=== PATIENT | male | born 1955 | race Caucasian/White ===

== ENCOUNTER 2020-07-10 01:24 | Outpatient (CLI) | payer MEDICARE, SELFPAY ==
[2020-07-10 17:41] LABS: SARS-CoV-2 RNA PCR Negative
== END 2020-07-10 01:25 | disposition home or self-care (01) ==
LOC: ANHCOVIDDT 01:24
PROVIDERS: Visit Provider Internal Medicine Gastroenterology
DX: Z01.812 Encounter for preprocedural laboratory examination (principal); Z20.828 Contact with and (suspected) exposure to other viral communicable diseases
CPT/HCPCS: 87635; C9803; U0003

== ENCOUNTER 2020-07-12 02:51 | Day surgery (SDC) | payer MEDICARE, SELFPAY ==
[2020-07-06 09:06] VITALS: BMI 29.7
[2020-07-12 08:27] VITALS: BP 119/95; PULSE 78; RESP 20; TEMP 36.4; O2SAT 96
[2020-07-12] MEDS: LACTATED RINGERS 1,000 ML 150 ML IV CONT (08:44)
--- NOTE | 2020-07-12 08:47 | PM.HPGS ---
History of Present Illness History of Present Illness Consent: Risks, benefits, and alternatives have been discussed and questions answered. Patient agrees to proceed with procedure. Chief complaint: Hx of Polyps Narrative: Shaun Pope is a 64 year old male with a history of colon polyps. He had 10 polyps removed about to years ago. 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 MARIJUANA Last use: DAILY USE OF MARIJUANA Living arrangements: with family Gender identity (if verbalized by the patient): Male Spiritual care concerns: No Agree to blood products: Yes Meds Home Medications and Allergies Home Medications Medication Instructions Recorded Confirmed Type almotriptan malate 12.5 mg PO PRN PRN 08/11/19 07/06/20 History atorvastatin 40 mg PO DAILY 08/11/19 07/06/20 History propranolol 160 mg PO DAILY 08/11/19 07/06/20 History Allergies Allergy/AdvReac Type Severity Reaction Status Date / Time hydrocodone Allergy Unknown FROM ABUSE Verified 07/12/20 08:26 IN YOUNGER YEARS Vital Signs Vital Signs - 24 hr 07/12/20 08:27 Temperature 36.4 C L Pulse Rate 78 Respiratory Rate 20 Blood Pressure 119/95 H Pulse Oximetry 96 Exam Resp: Auscultation: clear to auscultation bilaterally Cardio: Rate: regular rate Rhythm: regular rhythm GI: GI Palp: Yes Soft to palpation and No Tenderness to palpation present (GI) Assessment and Plan Assessment and plan (1) Personal history of colonic polyps: Code(s): Z86.010 - Personal history of colonic polyps Status: Acute Assessment and Plan: Colonoscopy with possible biopsy or polypectomy or cautery or injection of substances.
--- NOTE | 2020-07-12 08:48 | P.PNAN_ITS ---
Anes - Initial Pre Proc Eval Procedure: Operation Date: 07/12/20 09:00 Proposed Procedures p Screening Colonoscopy - Laron Montes MD Date/Time: 07/12/20 08:48 Surgeon: Laron Montes MD Pre Op Diagnosis: Hx of Polyps Patient Data Age: 64 Gender: M Height: 5 ft 10 in Weight: 87 kg Last Vital Signs Temp 97.5 F L 07/12/20 08:27 Pulse 78 07/12/20 08:27 Resp 20 07/12/20 08:27 BP 119/95 H 07/12/20 08:27 Pulse Ox 96 07/12/20 08:27 Allergies Allergy/AdvReac Type Severity Reaction Status Date / Time hydrocodone Allergy Unknown FROM ABUSE Verified 07/12/20 08:26 IN YOUNGER YEARS Home Medications Medication Instructions Recorded Confirmed Type almotriptan malate 12.5 mg PO PRN PRN 08/11/19 07/06/20 History atorvastatin 40 mg PO DAILY 08/11/19 07/06/20 History propranolol 160 mg PO DAILY 08/11/19 07/06/20 History Patient hx anesthesia problems: none Family hx anesthesia problems: none [facility] Past Medical History Medical History (Updated 07/12/20 @ 08:47 by Laron oMntes MD) High cholesterol Hypertension Surgical History Surgical History History of left above knee amputation Social History Social History Smoking packs per day: 1 Smoking cigarettes per day: 20.0 Years smoked: 15 Smoking pack-years: 15.00 Smoking status: Current every day smoker Tobacco type: cigarettes Alcohol intake: never Substance use: current Substance use type: marijuana, painkillers and prescription drug 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 MARIJUANA Last use: DAILY USE OF MARIJUANA Living arrangements: with family Gender identity (if verbalized by the patient): Male Spiritual care concerns: No Agree to blood products: Yes Anes - Eval Final PreProcedure Day of Procedure 07/12/20 08:48 Patient weight: overweight Heart: regular rate and rhythm Lungs: clear to auscultation Airway: Mallampati scale class II Neurological: alert and oriented Last oral intake: >/= 8 hours ASA classification: III Emergent: no Anesthetic plan: proceed Anesthesia type and monitoring: general GIVS and standard monitoring Informed Consent: The patient's anesthetic plan and its attendant risks and benefits were discussed with the patient/family/POA. Questions were solicited and answers provided to the satisfaction of the patient/family/POA.
[2020-07-12 09:36] VITALS: BP 137/82; PULSE 77; RESP 20; O2SAT 97
[2020-07-12 09:46] VITALS: BP 138/101; PULSE 78; RESP 18; O2SAT 97
[2020-07-12 09:56] VITALS: BP 137/78; PULSE 72; RESP 18; O2SAT 97
== END 2020-07-12 10:20 | disposition home or self-care (01) ==
PROVIDERS: Visit Provider Internal Medicine Gastroenterology
PROC: 0DJD8ZZ Inspection of Lower Intestinal Tract, Via Natural or Artificial Opening Endoscopic (ICD-10-PCS; CPT 45378; principal; 2020-07-12 09:00)
DX: Z12.11 Encounter for screening for malignant neoplasm of colon (principal); D12.2 Benign neoplasm of ascending colon; D12.4 Benign neoplasm of descending colon; K64.8 Other hemorrhoids; I10 Essential (primary) hypertension; E78.00 Pure hypercholesterolemia, unspecified; F17.210 Nicotine dependence, cigarettes, uncomplicated; F12.90 Cannabis use, unspecified, uncomplicated
CPT/HCPCS: 45385; 88305; J2704; J7120

== ENCOUNTER 2021-08-04 07:53 | Emergency (ER) | payer MEDICARE, SELFPAY ==
[2021-08-04] VITALS (22 sets, daily range): BP systolic 149–180; BP diastolic 98–109; PULSE 52–69; RESP 11–18; TEMP 35.5; O2SAT 97–100
--- NOTE | ~2021-08-04 | CT_ITS ---
EXAMINATION: CTA brain carotid DATE: 08/04/2021 08:52 INDICATION: Vertigo. TECHNIQUE: Computed tomographic angiography (CTA) of the head was performed without and with 100 mL O mnipaque-350 intravenous contrast. CTA of the neck was performed with intravenous contrast. Automated exposure control and iterative reconstruction technique were employed. The dose-length product was 1 743.60 mGy-cm. Maximum intensity projection and volume rendered 3D-reconstructions were created by víctor burden technologist on a separate workstation. COMPARISON: None. FINDINGS: HEAD CTA: There is no intracranial hemorrhage, acute infarction, or abnormal intracranial mass lesion . The ventricles are normal in size. The orbits are normal. There is complete opacification of right maxillary sinus with thickening and sclerosis of the sinus cardoza, consistent with chronic sinusitis. There is mild mucosal thickening in the paranasal sinuses. There is a small right mastoid effusion. T he orbits are normal. Left vertebral artery is dominant. There is no significant stenosis of basilar artery or the posterior cerebral arteries. The posterior communicating arteries are normal. There is an infundibulum at origin of right posterior cerebral communicating artery. There is no significant s tenosis of the intracranial internal carotid arteries or anterior or middle cerebral arteries. Anteri or communicating artery is normal. There is no aneurysm. NECK CTA: There is mild emphysema. There are no pathologically enlarged lymph nodes. There is no sign ificant stenosis of the vertebral arteries. There is mile plaque in the proximal internal carotid art eries. There is 0% stenosis of the proximal right internal carotid artery relative to normal distal a rtery lumen diameter (NASCET criteria). There is 0% stenosis of the proximal left internal carotid ar natalie relative to normal distal artery lumen diameter. There is an aberrant right subclavian artery. T here is mild stenosis of prevertebral right subclavian artery. There is severe cervical spondylosis. IMPRESSION: 1. Normal brain. No aneurysm or significant intracranial internal stenosis. 2. 0% stenosis of the proximal internal carotid arteries relative to normal distal artery lumen diame ters (NASCET criteria). Reviewed, dictated and finalized at location A. CONTROLLER IMPRESSION: 1. Normal brain. No aneurysm or significant intracranial internal stenosis. 2. 0% stenosis of the proximal internal carotid arteries relative to normal dis jeferson artery lumen diameters (NASCET criteria).
--- NOTE | 2021-08-04 07:59 | ECG_ITS ---
Measurements Intervals [place] Rate: 54 P: 47 WV: 150 QRS: -34 QRSD: 93 T: 29 QT: 427 QTc: 408 Interpretive Statements SINUS BRADYCARDIA LEFT AXIS DEVIATION BASELINE ARTIFACT- I, II, AVR, AVL, AVF, V2-V3 BORDERLINE ECG Electronically Signed On 08-05-2021 14:38:55 WINDER CONTORT OPERATOR by Vicente Frost D.O.
[2021-08-04 08:37] LABS: Basophils Absolute Auto 0.1 K/mm3 (0.0-0.1); Basophils Percent Auto 1.3 % (0.2-1.2); Eosinophils Absolute Auto 0.5 K/mm3 (0-0.3); Eosinophils Percent Auto 6.3 % (0-4.4); Hematocrit 43.4 % (42.0-52.0); Hemoglobin 15.4 g/dL (14.0-18.0); Immature Granulocyte Absolute 0.02 K/mm3 (0.00-0.031); Immature Granulocyte Percent A 0.3 % (0-0.5); Lymphocytes Absolute Auto 1.97 K/mm3 (0.9-3.2); Lymphocytes Percent Auto 24.8 % (18.3-44.2); Mean Corpuscular HGB Conc 35.5 g/dl (32-36); Mean Corpuscular Hemoglobin 32.9 pg (26-34); Mean Corpuscular Volume 92.7 fl (80-100); Mean Platelet Volume 10.2 fl (7.4-10.4); Monocytes Absolute Auto 0.6 K/mm3 (0.1-0.6); Monocytes Percent Auto 7.9 % (2.6-8.5); Neutrophils Absolute Auto 4.7 K/mm3 (1.3-6.7); Neutrophils Percent Auto 59.4 % (45.5-73.1); Platelet Count Result 266 k/mm3 (150-375); Red Blood Count 4.68 M/mm3 (4.6-6.20); Red Cell Distribution Width 12.5 % (11.5-14.5)
[2021-08-04 08:38] LABS: Anion Gap 11 mmol/L (8-16); Blood Urea Nitrogen 21 mg/dL (9-20); Calcium 9.7 mg/dL (8.4-10.2); Carbon Dioxide 20 mmol/L (22-30); Chloride 107 mmol/L (98-107); Estimated CRCL calculation 72 ml/min; Estimated Glomerular Filt Rate > 60; Glucose 195 mg/dL (65-110); Potassium 3.8 mmol/L (3.4-5.0); Sodium 138 mmol/L (137-145)
--- NOTE | 2021-08-04 08:50 | PC.NURSE ---
Pt gone to CT scan
--- NOTE | 2021-08-04 08:54 | PC.NURSE ---
Pt states his normally low between 50-60
[2021-08-04] MEDS: SODIUM CHLORIDE 0.9% IV 1,000 ML 999 ML IV CONT (08:57)
[2021-08-04] MEDS: MECLIZINE HCL 25 MG TABLET PO (08:57)
--- NOTE | 2021-08-04 09:08 | PC.NURSE ---
Informed pt of the importance of urine collection, he is attempting to use urinal
[2021-08-04 09:48] LABS: Add Urine Microscopic? YES; Appearance Urine Clear (Clear); Bilirubin Urine Negative (Negative); Blood Urine Negative (Negative); Color Urine Straw (Yellow); Glucose Urine UA Negative (Negative); Ketones Urine Trace mg/dL (Negative); Leukocyte Esterase Ur Negative LEU/UL (Negative); Mucus Urine Rare /lpf; Nitrate Urine Negative (Negative); Protein Urine Negative (Negative); RBC Urine 0-2 /hpf (0-2); Urobilinogen Urine Negative mg/dL (<2.0); WBC Urine 0-3 /hpf
[2021-08-04 09:51] LABS: Specific Grav Ur 1.036 (1.001-1.035)
--- NOTE | 2021-08-04 10:00 | PC.NURSE ---
aware of BP, pt states he will follow up with his doctor, and take his meds
[2021-08-04 10:07] LABS: Alanine Aminotransferase 31 U/L (4-50); Albumin Level 4.3 g/dL (3.5-5.1); Alkaline Phosphatase 100 U/L (38-126); Aspartate Amino Transferase 34 U/L (17-59); Bilirubin,Total 0.5 mg/dL (0.2-1.3)
--- NOTE | 2021-08-04 10:11 | ED.DIZZY ---
HPI - Dizziness General Chief Complaint: Dizziness Stated Complaint: dizziness, n/v Time Seen by Provider: 08/04/21 08:20 Source: patient History of Present Illness HPI Narrative: Patient presents with dizziness. Patient reports he was at the gas station getting up coughing and went to the dial register and he had sudden onset of dizziness described as the room was spinning and he was feeling off balance. Is never had symptoms like this before reports he was sweaty but reports he normally sweats a lot. He reported associated nausea denies any chest pain shortness of breath sensation of going to pass out focal numbness or weakness. rePorts he felt better when he closed his eyes reports his symptoms had greatly improved on arrival to the ER. Prior history of migraines and feels a headache coming on since arrival to the ER similar to his prior migraines Related Data Home Medications Medication Instructions Recorded Confirmed almotriptan malate 12.5 mg PO PRN PRN 08/11/19 07/06/20 atorvastatin 40 mg PO DAILY 08/11/19 07/06/20 propranolol 160 mg PO DAILY 08/11/19 07/06/20 Allergies Allergy/AdvReac Type Severity Reaction Status Date / Time hydrocodone Allergy Unknown FROM ABUSE Verified 07/12/20 08:26 IN YOUNGER YEARS Review of Systems Review of Systems: CONSTITUTIONAL: Denies fever, chills, or sweats. EYES: Denies visual changes, redness, or discharge. ENT: Denies rhinorrhea, congestion, sore throat, or otalgia. CARDIOVASCULAR: Denies chest pain, palpitations, or edema. RESPIRATORY: Denies cough or dyspnea. GASTROINTESTINAL: Denies abdominal pain, nausea, vomiting, or diarrhea. GENITOURINARY: Denies dysuria or hematuria. SKIN: Denies rash or itching. MUSCULOSKELETAL: Denies back pain, joint pain, or myalgia. NEUROLOGIC: Denies numbness, or weakness. PSYCHIATRIC: Denies anxiety or depression. 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 HEAD: Normocephalic, atraumatic. EYES: PERRLA and EOMI. ENT: Nares clear, no rhinorrhea or epistaxis. Mucous membranes moist. NECK: Supple. No masses. No JVD CHEST: Clear to auscultation. No respiratory distress. No wheezes rales or rhonchi HEART: Regular rate and rhythm. No murmur heard. Normal peripheral pulses. ABDOMEN: Soft, nontender, nondistended, normal active bowel sounds. EXTREMITIES: Normal range of motion. No edema. SKIN: Warm, dry, no rash. NEURO: Cranial nerves II through XII are intact patient has 5 out of 5 strength in all extremities sensation intact to light touch. Patient has no dysmetria there is no dysdiadochokinesia patient ambulates without difficulty alert and oriented x3. PSYCH: Normal mood and affect. Course Reevaluation(s) Reevaluation #1: Patient reports feeling much improved Date: 08/04/21 Time: 10:11 Vital Signs Vital signs: Vital Signs Pulse Rate 63 08/04/21 07:52 Respiratory Rate 11 L 08/04/21 07:52 Blood Pressure 167/99 H 08/04/21 07:52 Pulse Oximetry 97
[2021-08-04] MEDS: KETOROLAC 15 MG/ML VIAL (*BKC) IV PUSH (10:19)
[2021-08-04 10:20] LABS: Troponin I < 0.012 ng/mL (0.000-0.034)
--- NOTE | 2021-08-04 10:29 | PC.NURSE ---
Pt ambulated around the nursing station well,no complaints at this time, pt states he feels fine
== END 2021-08-04 11:02 | disposition home or self-care (01) ==
PROVIDERS: Emergency Provider Emergency Medicine
DX: H81.10 Benign paroxysmal vertigo, unspecified ear (principal); E78.00 Pure hypercholesterolemia, unspecified; I10 Essential (primary) hypertension; F17.210 Nicotine dependence, cigarettes, uncomplicated; Z89.612 Acquired absence of left leg above knee; Z86.69 Personal history of other diseases of the nervous system and sense organs
CPT/HCPCS: 36415; 70496; 70498; 80048; 80076; 81001; 84484; 85025; 93005; 96361; 96374; 96375; 99284; A9270; J0131; J1885; J7030; Q9967

== ENCOUNTER 2021-08-07 09:38 | Emergency (ER) | payer MEDICARE, SELFPAY ==
[2021-08-07 09:38] VITALS: BP 135/102; PULSE 69; RESP 12; TEMP 36.7; O2SAT 99
--- NOTE | 2021-08-07 09:46 | ECG_ITS ---
Measurements Intervals [place] Rate: 69 P: 48 ID: 150 QRS: -33 QRSD: 86 T: 37 QT: 373 QTc: 400 Interpretive Statements SINUS RHYTHM LEFT AXIS DEVIATION DELAYED PRECORDIAL R/S TRANSITION CONSIDER INFERIOR INFARCT, AGE INDETERMINATE ABNORMAL ECG Electronically Signed On 08-07-2021 11:23:57 ELECTRIC MOTOR ANALYST by Vicente Frost D.O.
[2021-08-07 09:58] LABS: Basophils Absolute Auto 0.1 K/mm3 (0.0-0.1); Basophils Percent Auto 0.6 % (0.2-1.2); Eosinophils Absolute Auto 1.4 K/mm3 (0-0.3); Eosinophils Percent Auto 12.7 % (0-4.4); Hematocrit 46.7 % (42.0-52.0); Hemoglobin 16.4 g/dL (14.0-18.0); Immature Granulocyte Absolute 0.04 K/mm3 (0.00-0.031); Immature Granulocyte Percent A 0.4 % (0-0.5); Lymphocytes Absolute Auto 1.09 K/mm3 (0.9-3.2); Lymphocytes Percent Auto 10.2 % (18.3-44.2); Mean Corpuscular HGB Conc 35.1 g/dl (32-36); Mean Corpuscular Hemoglobin 32.2 pg (26-34); Mean Corpuscular Volume 91.7 fl (80-100); Mean Platelet Volume 10.4 fl (7.4-10.4); Monocytes Absolute Auto 0.5 K/mm3 (0.1-0.6); Monocytes Percent Auto 4.6 % (2.6-8.5); Neutrophils Absolute Auto 7.7 K/mm3 (1.3-6.7); Neutrophils Percent Auto 71.5 % (45.5-73.1); Platelet Count Result 280 k/mm3 (150-375); Red Blood Count 5.09 M/mm3 (4.6-6.20); Red Cell Distribution Width 12.7 % (11.5-14.5); White Blood Count 10.7 K/mm3 (4.5-10.0)
[2021-08-07 10:16] LABS: Anion Gap 14 mmol/L (8-16); Blood Urea Nitrogen 25 mg/dL (9-20); Calcium 10.4 mg/dL (8.4-10.2); Carbon Dioxide 20 mmol/L (22-30); Chloride 106 mmol/L (98-107); Estimated CRCL calculation 65 ml/min; Estimated Glomerular Filt Rate > 60; Glucose 154 mg/dL (65-110); Potassium 3.9 mmol/L (3.4-5.0); Sodium 140 mmol/L (137-145)
[2021-08-07] MEDS: LACTATED RINGERS 1,000 ML 999 ML IV CONT (12:15)
[2021-08-07] MEDS: MECLIZINE HCL 25 MG TABLET PO (12:16)
[2021-08-07] MEDS: PROCHLORPERAZINE EDISYLATE 10 MG/2 ML VIAL IV PUSH (12:16)
--- NOTE | 2021-08-07 12:17 | ED.DIZZY ---
HPI - Dizziness General Chief Complaint: Dizziness Stated Complaint: dizzy, blurred vision Time Seen by Provider: 08/07/21 11:17 Source: patient Mode of arrival: ambulatory Limitations: no limitations History of Present Illness HPI Narrative: 65-year-old male Here with recurrent dizziness/vertigo Patient reports a feeling of fullness on the right side of his head and currently a migraine type headache, along with severe spinning dizziness associated with nausea and vomiting and imbalance which is triggered by changes in position or by head movement and somewhat relieved by remaining still Patient had onset of the symptoms 3 days ago He was seen here in the ED at that time, and had an unremarkable work-up to include a negative CTA of the head After his initial evaluation the patient reported that he had a couple of symptom-free days but symptoms returned last night and persisted this morning He tried to take meclizine but he threw it up He does not have any visual symptoms, denies any auditory symptoms such as hearing loss or tinnitus Related Data Home Medications Medication Instructions Recorded Confirmed almotriptan malate 12.5 mg PO PRN PRN 08/11/19 07/06/20 atorvastatin 40 mg PO DAILY 08/11/19 07/06/20 propranolol 160 mg PO DAILY 08/11/19 07/06/20 Allergies Allergy/AdvReac Type Severity Reaction Status Date / Time hydrocodone Allergy Unknown FROM ABUSE Verified 07/12/20 08:26 IN YOUNGER YEARS Review of Systems Review of Systems: All systems reviewed & are unremarkable except as noted in HPI and below Constitutional: Constitutional: Reports no additional constitutional complaints, Denies chills, Denies fever(s) and Denies headache(s) Eyes: Eyes: Reports no additional eye complaints, Denies change in vision and Reports photophobia ENT: Reports vertigo, Reports dizziness, Denies headache(s) and Denies sore throat Cardiovascular: Cardiovascular: Denies chest pain and Denies dyspnea Respiratory: Respiratory: Denies cough and Denies dyspnea Gastrointestinal: Gastrointestinal: Denies abdominal pain, Denies diarrhea, Reports nausea and Reports vomiting Genitourinary: Genitourinary: Denies dysuria and Denies urinary frequency Musculoskeletal: Musculoskeletal: Denies deformity, Denies arthralgias, Denies joint swelling and Denies numbness Integumentary/Breasts: Skin/Breast: Denies rash and Denies wounds Neurologic: Reports vertigo, Reports dizziness, Reports headache(s), Denies focal weakness and Denies numbness Psychiatric: Psychiatric: Reports no additional psychiatric complaints Endocrine: Endocrine: Reports no additional endocrine complaints Hematologic/Lymphatic: Hematologic/Lymphatic: Reports no additional hematologic/lymphatic complaints Allergic/Immunologic: Allergic/Immunologic: Reports no additional allergic/immunologic complaints PMFSH Past Medical History Medical History High cholesterol Hypertension Surgical History Surgical History History of left above knee amputation Social History Social History Smoking packs per day: 1 Smoking cigarettes per day: 20.0 Years smoked: 15 Smoking pack-years: 15.00 Smoking status: Current every day smoker Tobacco type: cigarettes Alcohol intake: never Substance use: current Substance use type: marijuana, painkillers and prescription drug 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
[2021-08-07 12:22] VITALS: BP 139/97; PULSE 71; RESP 16; O2SAT 100
[2021-08-07 13:35] VITALS: BP 149/92; PULSE 68
[2021-08-07 13:36] VITALS: BP 148/108; PULSE 72
[2021-08-07 13:37] VITALS: BP 155/102; PULSE 80
[2021-08-07 14:09] VITALS: BP 140/90; PULSE 75; RESP 16; O2SAT 100
== END 2021-08-07 14:10 | disposition home or self-care (01) ==
PROVIDERS: Emergency Medicine; Emergency Provider Emergency Medicine
DX: H81.399 Other peripheral vertigo, unspecified ear (principal); E78.00 Pure hypercholesterolemia, unspecified; I10 Essential (primary) hypertension; Z89.612 Acquired absence of left leg above knee; F17.210 Nicotine dependence, cigarettes, uncomplicated; R94.31 Abnormal electrocardiogram [ECG] [EKG]
CPT/HCPCS: 36415; 80048; 85025; 93005; 96361; 96374; 99284; A9270; J0780; J7120

== ENCOUNTER 2023-12-29 01:35 | Day surgery (SDC) | payer MEDICARE, SELFPAY ==
[2023-12-15 15:15] VITALS: BMI 28.4
--- NOTE | 2023-12-26 09:38 | SUR.PREOP ---
Patient called regarding upcoming procedure- no answer.
[2023-12-29 07:53] VITALS: BP 144/82; PULSE 81; RESP 18; TEMP 36.1; O2SAT 100
[2023-12-29] MEDS: LACTATED RINGERS 1,000 ML 150 ML IV CONT (08:13)
--- NOTE | 2023-12-29 08:14 | P.PNAN_ITS ---
Anes - Initial Pre Proc Eval Procedure: Operation Date: 12/29/23 09:00 Proposed Procedures p Colonoscopy - Lincoln Woods MD s [facility] Hemorrhoid Treatment - Lincoln Woods MD Date/Time: 12/29/23 08:14 Surgeon: Lincoln Woods MD Pre Op Diagnosis: History colon polyps, melena, other hemorrhoids Patient Data Age: 68 Gender: M Height: 1.78 m Weight: 90 kg Last Vital Signs Temp 97 F L 12/29/23 07:53 Pulse 81 12/29/23 07:53 Resp 18 12/29/23 07:53 BP 144/82 H 12/29/23 07:53 Pulse Ox 100 12/29/23 07:53 O2 Del Method Room Air 12/29/23 07:53 Allergies Allergy/AdvReac Type Severity Reaction Status Date / Time hydrocodone Allergy Unknown FROM ABUSE Verified 12/29/23 07:51 IN YOUNGER YEARS Home Medications Medication Instructions Recorded Confirmed Type almotriptan malate 12.5 mg tablet 12.5 mg PO PRN PRN Headache 08/11/19 12/15/23 History atorvastatin 40 mg tablet 40 mg PO DAILY 08/11/19 12/15/23 History propranolol 160 mg capsule,24 160 mg PO DAILY 08/11/19 12/15/23 History hr,extended release ibuprofen 800 mg tablet 800 mg PO Q6H PRN Pain 10/29/23 12/15/23 History Patient hx anesthesia problems: none Family hx anesthesia problems: none Results Review: All pre-operative results and documents have been reviewed as part of the pre- operative evaluation. [facility] Past Medical History Medical History (Updated 10/29/23 @ 10:41 by Katerin Bansal APRN) Hematochezia High cholesterol Hx of prostatic malignancy Hyperlipidemia Hypertension Internal hemorrhoid, bleeding Migraines Surgical History Surgical History (Updated 10/29/23 @ 10:41 by Katerin Bansal APRN) History of left above knee amputation Hx of endoscopic retrograde cholangiopancreatography Hx of prostatectomy Social History Social History Smoking packs per day: 2 Smoking cigarettes per day: 40.0 Years smoked: 15 Smoking pack-years: 30.00 Smoking status: Former smoker Tobacco type: cigarettes Alcohol intake: former Alcohol use details: last drinks 1984 Substance use: current Substance use type: marijuana 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 MARIJUANA Last use: DAILY USE OF MARIJUANA Living arrangements: with family Gender identity (if verbalized by the patient): Male Spiritual care concerns: No Agree to blood products: Yes Anes - Eval Final PreProcedure Day of Procedure 12/29/23 08:14 Patient weight: normal Heart: regular rate and rhythm Lungs: clear to auscultation Airway: Mallampati scale class II Neurological: alert and oriented Last oral intake: >/= 8 hours ASA classification: III Emergent: no Anesthetic plan: proceed Anesthesia type and monitoring: general GIVS and standard monitoring Results Review: All pre-operative results and documents have been reviewed as part of the pre- operative evaluation. Informed Consent: The patient's anesthetic plan and its attendant risks and benefits were discussed with the patient/family/POA. Questions were solicited and answers provided to the satisfaction of the patient/family/POA.
--- NOTE | 2023-12-29 08:28 | PM.HPGS ---
History of Present Illness History of Present Illness Consent: Risks, benefits, and alternatives have been discussed and questions answered. Patient agrees to proceed with procedure. Chief complaint: History colon polyps, melena, other hemorrhoids Narrative: Shaun Pope is a 68 year old male with h/o hemorrhoids and intermittent rectal bleeding, last colonoscopy with TA polyps in 2018 Review of Systems Review of Systems: All systems reviewed & are unremarkable except as noted in HPI and below PMFSH Past Medical History Medical History (Updated 10/29/23 @ 10:41 by Katerin Bansal APRN) Hematochezia High cholesterol Hx of prostatic malignancy Hyperlipidemia Hypertension Internal hemorrhoid, bleeding Migraines Surgical History Surgical History (Updated 10/29/23 @ 10:41 by Katerin Bansal APRN) History of left above knee amputation Hx of endoscopic retrograde cholangiopancreatography Hx of prostatectomy Social History Social History Smoking packs per day: 2 Smoking cigarettes per day: 40.0 Years smoked: 15 Smoking pack-years: 30.00 Smoking status: Former smoker Tobacco type: cigarettes Alcohol intake: former Alcohol use details: last 1984 Substance use: current Substance use type: marijuana 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 MARIJUANA Last use: DAILY USE OF MARIJUANA Living arrangements: with family Gender identity (if verbalized by the patient): Male Spiritual care concerns: No Agree to blood products: Yes Meds Home Medications and Allergies Home Medications Medication Instructions Recorded Confirmed Type almotriptan malate 12.5 mg tablet 12.5 mg PO PRN PRN Headache 08/11/19 12/15/23 History atorvastatin 40 mg tablet 40 mg PO DAILY 08/11/19 12/15/23 History propranolol 160 mg capsule,24 160 mg PO DAILY 08/11/19 12/15/23 History hr,extended release ibuprofen 800 mg tablet 800 mg PO Q6H PRN Pain 10/29/23 12/15/23 History Allergies Allergy/AdvReac Type Severity Reaction Status Date / Time hydrocodone Allergy Unknown FROM ABUSE Verified 12/29/23 07:51 IN YOUNGER YEARS Vital Signs Vital Signs - 24 hr 12/29/23 07:53 Temperature 97 F L Pulse Rate 81 Respiratory Rate 18 Blood Pressure 144/82 H Pulse Oximetry 100 Oxygen Delivery Room Air Exam Const: General: comfortable and no acute distress HENMT: Face/Nose/Sinus: Normal nares present Eyes: General: appearance normal, both eyes and all related structures Neck: Neck: no JVD Resp: Auscultation: clear to auscultation bilaterally Cardio: Rate: regular rate Rhythm: regular rhythm GI: Inspection: non-distended GI Palp: Yes Soft to palpation Skin: General skin exam: normal color Neuro: General: gait normal Speech: normal speech Extrem: General: normal to inspection Psych: Mental Status: mental status grossly normal Assessment and Plan Assessment and plan (1) Internal hemorrhoid, bleeding: Code(s): K64.8 - Other hemorrhoids Status: Acute Assessment and Plan: if find internal hemorrhoids then will offer IRC (2) Personal history of colonic polyps: Code(s): Z86.010 - Personal history of colonic polyps Status: Acute Assessment and Plan: colonoscopy
[2023-12-29 08:51] VITALS: BP 110/69; PULSE 85; RESP 21; O2SAT 96
[2023-12-29 09:01] VITALS: BP 119/87; PULSE 86; RESP 20; O2SAT 100
[2023-12-29 09:11] VITALS: BP 132/85; PULSE 90; RESP 18; O2SAT 100
--- NOTE | 2023-12-29 15:31 | SUR.OPER ---
0845: IRC TREATMENT NOT COMPLETED DUE TO IRC MACHINE NOT WORKING PROPERLY, DR UP NOTIFIED PT.
== END 2023-12-29 09:15 | disposition home or self-care (01) ==
PROVIDERS: PCP Family Medicine; Visit Provider Internal Medicine Gastroenterology
PROC: 0DJD8ZZ Inspection of Lower Intestinal Tract, Via Natural or Artificial Opening Endoscopic (ICD-10-PCS; CPT 45378; principal; 2023-12-29 09:00)
DX: K64.2 Third degree hemorrhoids (principal); K57.30 Diverticulosis of large intestine without perforation or abscess without bleeding; D12.4 Benign neoplasm of descending colon; K63.5 Polyp of colon; E78.00 Pure hypercholesterolemia, unspecified; I10 Essential (primary) hypertension; F12.90 Cannabis use, unspecified, uncomplicated; Z79.1 Long term (current) use of non-steroidal anti-inflammatories (NSAID); Z98.890 Other specified postprocedural states; Z89.612 Acquired absence of left leg above knee; Z87.891 Personal history of nicotine dependence; Z86.010 Personal history of colon polyps; Z85.46 Personal history of malignant neoplasm of prostate
CPT/HCPCS: 45380; 45385; 88305; J2704; J7120

== ENCOUNTER 2024-01-22 09:21 | Outpatient (CLI) | payer MEDICARE, SELFPAY ==
--- NOTE | 2024-01-22 11:45 | ECG_ITS ---
SEE SCANNED COPY FOR CONFIRMED REPORT MTDD
== END 2024-01-22 09:22 | disposition home or self-care (01) ==
LOC: ANHSURGERY 09:26
PROVIDERS: PCP Family Medicine; Visit Provider Surgery
DX: Z01.818 Encounter for other preprocedural examination (principal); I10 Essential (primary) hypertension
CPT/HCPCS: 93005

== ENCOUNTER 2024-01-26 00:52 | Day surgery (SDC) | payer MEDICARE, SELFPAY ==
--- NOTE | 2024-01-21 15:21 | PC.NURSE ---
Report to the Outpatient Waiting Room, entrance under the green pavilion located off [facility], at time ___06____ on date ___01/26/24____. Planned Procedure Time: __729 . Time changes happen often and if your time is changed the preop area will call you the afternoon before. - You and your visitor will be asked to self-screen and do not enter if you have any COVID symptoms. - A mask is optional within the hospital at this time. BOWEL PREP PER DR ARAGON CLEAR LIQUID DIET DAY PRIOR TO SURGERY THEN NOTHING TO EAT OR DRINK AFTER MIDNIGHT PER DR ARAGON Take the following medications with a SIP of water the morning of surgery: ___PROPRANOLOL DO NOT STOP ANY OF YOUR OTHER PRESCRIPTION MEDICATIONS PRIOR TO SURGERY ?EXCEPT THE FOLLOWING Medications to discontinue per physician NONE Please no make-up, nail zambian, hairspray, perfume, deodorant, or body powder the day of surgery. No jewelry (including any body piercings) or valuables the day of surgery, leave them at home. Please take a shower or bath the night before, or the morning of, surgery with an antibacterial soap. Wear comfortable, loose fitting clothing. Children are encouraged to wear pajamas. - Jewelry must be removed prior to entering the operating room. Rings and piercings that are not removed may be cut off. - The hospital will not accept responsibility for valuables. - Please leave all valuables, including medications, at home the day of surgery. If you are going home after surgery, a licensed belly dump driver must drive you home. - NO public transportation without another adult if you receive anesthesia. - We recommend that an adult stay with you for 24 hours following discharge. - We also recommend that you do not drive, make important decision, drink alcoholic beverages, or take any drugs that were not prescribed by your health care provider for at least 24 hours after your discharge time. Follow any additional instructions given to you from your surgeon. If you or anyone in your household have experienced Covid symptoms in the past week, please notify your surgeon or the nurse liaison at the phone number below for possible testing. Telephone instructions given to ___PATIENT and asked if any additional questions and then verbalized understanding. Patient advised to call surgeon office or pre surgery nurse liaison [phone] if any additional questions.
[2024-01-21 15:33] VITALS: BMI 25.8
[2024-01-26] VITALS (8 sets, daily range): BP systolic 133–148; BP diastolic 84–103; PULSE 64–82; RESP 12–18; TEMP 36.2–36.4; O2SAT 94–99
[2024-01-26] MEDS: ACETAMINOPHEN 500 MG TABLET 1000 MG PO (06:41)
[2024-01-26] MEDS: KETOROLAC 15 MG/ML VIAL (*BKC) IV PUSH (06:44)
[2024-01-26] MEDS: LACTATED RINGERS 1,000 ML 30 ML IV CONT ×2 (06:50→09:39)
--- NOTE | 2024-01-26 07:20 | WPDANESEPPF ---
Anes - Initial Pre Proc Eval Procedure: Operation Date: 01/26/24 07:30 Proposed Procedures p Trans Hemorrhoidal Dearterialization - Kwaku Castle MD Date/Time: 01/26/24 07:20 Surgeon: Kwaku Castle MD Pre Op Diagnosis: Bleeding Grade III Hemorrhoids Patient Data Age: 68 Gender: M Height: 1.78 m Weight: 77.5 kg Last Vital Signs Temp 36.2 C L 01/26/24 06:50 Pulse 82 01/26/24 06:50 Resp 18 01/26/24 06:50 BP 137/92 H 01/26/24 06:50 Pulse Ox 99 01/26/24 06:50 O2 Del Method Room Air 01/26/24 06:50 Allergies Allergy/AdvReac Type Severity Reaction Status Date / Time hydrocodone AdvReac Unknown FROM ABUSE Verified 01/26/24 06:15 IN YOUNGER YEARS Home Medications Medication Instructions Recorded Confirmed Type almotriptan malate 12.5 mg tablet 12.5 mg PO PRN PRN Headache 08/11/19 01/26/24 History atorvastatin 40 mg tablet 40 mg PO DAILY 08/11/19 01/26/24 History propranolol 160 mg capsule,24 160 mg PO DAILY 08/11/19 01/26/24 History hr,extended release sulfasalazine 500 mg tablet 1,000 mg PO BID 01/21/24 01/26/24 History Patient hx anesthesia problems: none Family hx anesthesia problems: none Results Review: All pre-operative results and documents have been reviewed as part of the pre-operative evaluation. [facility] Past Medical History Medical History Hematochezia Hepatitis C infection High cholesterol History of blood transfusion 1983 Hx of prostatic malignancy Hyperlipidemia Hypertension Internal hemorrhoid, bleeding Migraines Vertigo Surgical History Surgical History History of left above knee amputation Hx of endoscopic retrograde cholangiopancreatography Hx of prostatectomy Social History Social History Smoking packs per day: 2 Smoking cigarettes per day: 40.0 Years smoked: 15 Smoking pack-years: 30.00 Smoking status: Former smoker Tobacco type: cigarettes Smoking end date: 09/22/87 Alcohol intake: former Alcohol use details: last drinks 1984 Substance use: current Substance use type: marijuana 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 MARIJUANA Last use: 01/21/24 Living arrangements: with family Gender identity (if verbalized by the patient): Male Spiritual care concerns: No Agree to blood products: Yes Anes - Eval Final PreProcedure Day of Procedure 01/26/24 07:20 Patient weight: normal Heart: regular rate and rhythm Lungs: decreased breath sounds Airway: Mallampati scale class II Neurological: alert and oriented Last oral intake: >/= 8 hours ASA classification: III Emergent: no Anesthetic plan: proceed Anesthesia type and monitoring: general ETT and standard monitoring Results Review: All pre-operative results and documents have been reviewed as part of the pre-operative evaluation. Informed Consent: The patient's anesthetic plan and its attendant risks and benefits were discussed with the patient/family/POA. Questions were solicited and answers provided to the satisfaction of the patient/family/POA.
--- NOTE | 2024-01-26 07:27 | WPDHPUPDATE1 ---
History and Physical Update Update Date/Time: 01/26/24 07:27 History and Physical has been reviewed, including an updated exam of the patient. There are NO changes in the patient's condition. Risks, benefits, and alternatives have been discussed and questions answered. Patient agrees to proceed with procedure.
[2024-01-26] MEDS: ceFAZolin 2 GM/D5W 50 ML 2 GM/50 ML BAG IVPB (07:30)
[2024-01-26] MEDS: BUPivacaine HCL 0.5% 10 ML AMP 30 ML INFILTRATE (07:49)
[2024-01-26] MEDS: LIDO 1%/EPINEPHRINE 1:100,000 20 ML VIAL 30 ML INFILTRATE (07:50)
[2024-01-26] MEDS: LIDOCAINE HCL 2% GEL UROJET 10 ML PKG MUCOUS MEM (09:25)
--- NOTE | 2024-01-26 09:55 | P.OP_ITS ---
Procedure Note - Detailed Date of Procedure 01/26/24 Pre-op Diagnosis Bleeding Grade III Hemorrhoids Post-op Diagnosis Same Procedure Performed Transanal hemorrhoidal dearterialization procedure with proctopexy a prolapsing internal hemorrhoids Surgeon Kwaku Castle MD Concrete Rubber Danelle Knott [facility] Anesthesia General Indications Patient is a 68-year-old gentleman presented with bleeding of very large internal hemorrhoids. Due to the amount of bleeding is having he presents now for a THD procedure. Findings Patient have large prolapsing circumferential internal hemorrhoids. No evidence of thrombosis of the hemorrhoids was seen. No anal fissures or anal fistulas were seen. No masses in the anal canal or distal rectum were seen. Description of Procedure After informed consent was obtained patient brought to the operating room and placed under general endotracheal anesthesia on the gurney and then turned in the prone ashish-knife position on the operating table. Care was taken make sure all the pressure points well padded. The buttocks were then taped apart and the perianal region was then prepped and draped usual sterile fashion. A time-out was then performed correctly identifying the patient as well as procedure to be performed. He was given some perioperative IV antibiotics. I 1st started by gently dilated the anal sphincters with well lubricated anal speculum. Looking in the anal canal there is no evidence of distal rectal masses or anal canal masses. The patient had large circumferential internal hemorrhoids which were nonthrombosed. I 1st started at the 1 o'clock position where the specialized THD anal speculum with the attached Doppler probe was advanced into the anal canal. I was able to identify the biphasic Doppler post to the terminal bran ches of the hemorrhoidal arteries at the 1 o'clock, 3 o'clock, 5 o'clock, 7 o'clock, 9 o'clock, and 11 o'clock positions. In a similar fashion at all of these positions utilizing the specialized anal speculum I placed a 2-0 Vicryl suture through the pre determined slot with needle helper/driver in the pin the guide. The suture was then tied down to ligate the terminal branch of the hemorrhoid artery and then the suture was then run in a continuous fashion gathering up the redundant internal hemorrhoid tissue out to the dentate line. The suture was then tied down performing a pexy of the prolapsing internal hemorrhoid tissue and securing the tissue higher up in the anal canal preventing prolapsing of the hemorrhoid tissue. This was done all 6 positions. I then irrigated out the anal canal sterile saline solution. Hemostasis was excellent. I then injected 1% lidocaine mixed with 0.5% Marcaine in the perianal region for perianal block. That a pudendal nerve blocks were then placed as well. A cane covered piece of Gelfoam was placed into the anal canal. There is then cleaned and then fluffed 4x4 gauze ABD pads and disposable underwear was used for final dressing. The patient tolerated the procedure well no complications. All sponges, needles, and instrument counts were correct at the end procedure. EBL was _25__cc. The patient was awakened and taken to recovery in stable and satisfactory condition. Implants None Estimated Blood Loss 25 Drains No Packing Yes (Gelfoam in the anal canal) Pathology None sent Complications No immediate complications Condition Stable Disposition PACU [facility] Billing Surgery - Charge Forward: Surgery Billing
== END 2024-01-26 11:20 | disposition home or self-care (01) ==
PROVIDERS: PCP Family Medicine; Visit Provider Surgery
PROC: (CPT 46948; principal; 2024-01-26 07:30)
DX: K64.2 Third degree hemorrhoids (principal); I10 Essential (primary) hypertension; E78.00 Pure hypercholesterolemia, unspecified; F12.90 Cannabis use, unspecified, uncomplicated; Z98.890 Other specified postprocedural states; Z87.891 Personal history of nicotine dependence; Z85.46 Personal history of malignant neoplasm of prostate
CPT/HCPCS: 46948; 93005; A9270; J0330; J0690; J1100; J1885; J2250; J2405; J2704; J3010; J7120

== ENCOUNTER 2024-01-30 05:13 | Emergency (ER) | payer MEDICARE, SELFPAY ==
[2024-01-30] VITALS (9 sets, daily range): BP systolic 128–196; BP diastolic 92–120; PULSE 54–81; RESP 14–24; TEMP 36.3; O2SAT 96–100
--- NOTE | ~2024-01-30 | CT_ITS ---
CT of the Abdomen and Pelvis: Indication: Abdominal pain Technique: 2.5 mm axial scans were obtained through the abdomen and pelvis following intravenous adm inistration of 100 cc of Omnipaque 350. Dose reduction technique was used on this scan by utilizing a utomated exposure control and iterative reconstruction technique. The dose-length product (DLP) was 6 06.70 mGy-cm. COMPARISON: 08/11/2019 Findings: Scans through the lung bases are unremarkable. Scattered liver cysts are present. The spleen, pancreas, gallbladder, adrenals and kidneys are within normal limits. Infrarenal abdominal aortic aneurysm measures 5.2 cm in diameter, with extensive mura l thrombus present. There are atherosclerotic calcific patient of the aorta and iliac vessels No lymp hadenopathy. Questionable wall thickening at the very distal rectum/anal canal. No bowel obstruction. Remainder of bowel appears unremarkable. Images through the pelvis were performed. Urinary bladder unremarkable. No pelvic mass seen. No ascit es. Impression: 5.2 cm infrarenal abdominal aortic aneurysm, significantly increased in size since 08/11/2019. Questionable wall thickening very distal rectum/anal canal. Correlate with physical exam to assess fo r any possibility of mass lesion. Reviewed, dictated and finalized at location . Impression: 5.2 cm infrarenal abdominal aortic aneurysm, significantly increased in size si nce 08/11/2019. Questionable wall thickening very distal rectum/anal canal. Correlate with phys ical exam to assess for any possibility of mass lesion.
[2024-01-30 05:34] LABS: Basophils Percent Auto 0.4 % (0.2-1.2); Hematocrit 39.3 % (42.0-52.0); Hemoglobin 13.3 g/dL (14.0-18.0); Immature Granulocyte Absolute 0.06 K/mm3 (0.00-0.031); Immature Granulocyte Percent A 0.6 % (0-0.5); Lymphocytes Percent Auto 12.9 % (18.3-44.2); Mean Corpuscular HGB Conc 33.8 g/dl (32-36); Mean Corpuscular Hemoglobin 29.1 pg (26-34); Mean Platelet Volume 10.9 fl (7.4-10.4); Monocytes Percent Auto 9.9 % (2.6-8.5); Neutrophils Absolute Auto 7.7 K/mm3 (1.3-6.7); Neutrophils Percent Auto 76.2 % (45.5-73.1); Platelet Count Result 295 k/mm3 (150-375); Red Blood Count 4.57 M/mm3 (4.6-6.20); Red Cell Distribution Width 14.3 % (11.5-14.5)
--- NOTE | 2024-01-30 05:35 | ED.NAVMDI ---
HPI - Nausea/Vomiting/Diarrhea General Chief complaint: Nausea/Vomiting/Diarrhea Stated complaint: nausea/vomiting Time Seen by Provider: 01/30/24 05:23 Source: patient Mode of arrival: ambulatory Limitations: no limitations History of Present Illness HPI Narrative: 68-year-old male presenting for chief complaint of abdominal pain, nausea, vomiting. Had a hemorrhoid procedure done 5 days ago. Took oxycodone for pain afterwards but did realize that he has had a lot of side effects including vomiting with it years ago when he took it before. Has not been eating very much but has had some small bowel movements. Says he is just having queasy aching abdominal pain throughout his abdomen. Has only vomited once or twice. Related Data Home Medications Medication Instructions Recorded Confirmed almotriptan malate 12.5 mg tablet 12.5 mg PO PRN PRN Headache 08/11/19 01/26/24 atorvastatin 40 mg tablet 40 mg PO DAILY 08/11/19 01/26/24 propranolol 160 mg capsule,24 160 mg PO DAILY 08/11/19 01/26/24 hr,extended release sulfasalazine 500 mg tablet 1,000 mg PO BID 01/21/24 01/26/24 Allergies Allergy/AdvReac Type Severity Reaction Status Date / Time hydrocodone AdvReac Unknown FROM ABUSE Verified 01/30/24 05:23 IN YOUNGER YEARS Review of Systems Review of Systems: All systems reviewed & are unremarkable except as noted in HPI and below PMFSH Past Medical History Medical History Hematochezia Hepatitis C infection High cholesterol History of blood transfusion 1983 Hx of prostatic malignancy Hyperlipidemia Hypertension Internal hemorrhoid, bleeding Migraines Vertigo Surgical History Surgical History History of left above knee amputation Hx of endoscopic retrograde cholangiopancreatography Hx of prostatectomy Social History Social History Smoking packs per day: 2 Smoking cigarettes per day: 40.0 Years smoked: 15 Smoking pack-years: 30.00 Smoking status: Former smoker Tobacco type: cigarettes Smoking end date: 09/22/87 Alcohol intake: former Alcohol use details: last 1984 Substance use: current Substance use type: marijuana 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 Eyes: Pupils equal, round, and reactive to light. Neck: Supple, no tracheal deviation, no JVD. ENMT: Mucous membranes moist Cardiovascular: S1, S2 auscultated. No murmurs, rubs, or gallops. No S3/S4. Normal Distal pulses. No peripheral edema. Respiratory: Lung sounds equal. No wheezes, rales, or rhonchi. Gastrointestinal: Abdomen was soft and non-tender. Non-distended. No rebound or guarding. Genitourinary: Deferred Musculoskeletal: Normal muscle tone and bulk. Left AKA. Skin: No rashes. Neurological: Strength 5/5 in extremities. Cranial nerves I-XII grossly intact. Distal sensation intact. Mental Status: Awake, alert and oriented x3. Follows commands Course Vital Signs Vital signs: Vital Signs Temperature 36.3 C L 01/30/24 05:20 Pulse Rate 81 01/30/24 05:20 Respiratory Rate 22 H 01/30/24 05:20 Blood Pressure 181/113 H 01/30/24 05:20 Pulse Oximetry 100 01/30/24 05:20 Oxygen Delivery Room Air 01/30/24 05:20 Temperature 36.3 C L 01/30/24 05:20 Pulse Rate 81 01/30/24 05:20 Respiratory Rate 22 H 01/30/24 05:20 Blood Pressure 181/113 H 01/30/24 05:20 Pulse Oximetry 100 01/30/24 05:20 Oxygen Delivery Room Air 01/30/24 05:20 MDM - Nausea/Vomiting/Diarrhea MDM Narrati
--- NOTE | 2024-01-30 05:38 | ECG_ITS ---
SEE SCANNED COPY FOR CONFIRMED REPORT MTDD
[2024-01-30] MEDS: SODIUM CHLORIDE 0.9% IV 1,000 ML 999 ML IV CONT (05:44)
[2024-01-30] MEDS: KETOROLAC 15 MG/ML VIAL (*BKC) IV PUSH (05:44)
[2024-01-30] MEDS: ONDANSETRON INJ 4 MG/2 ML VIAL IV PUSH (05:44)
[2024-01-30 05:47] LABS: Alanine Aminotransferase 20 U/L (6-50); Albumin Level 4.1 g/dL (3.5-5.1); Alkaline Phosphatase 109 U/L (38-126); Anion Gap 13 mmol/L (4-12); Aspartate Amino Transferase 32 U/L (17-59); Bilirubin,Total 0.5 mg/dL (0.2-1.3); Blood Urea Nitrogen 17 mg/dL (9-20); Calcium 9.1 mg/dL (8.4-10.2); Carbon Dioxide 16 mmol/L (22-30); Chloride 106 mmol/L (98-107); Estimated CRCL calculation 49 ml/min; Estimated Glomerular Filt Rate 55; Glucose 143 mg/dL (65-110); Potassium 2.5 mmol/L (3.4-5.0); Sodium 135 mmol/L (137-145)
[2024-01-30 06:08] LABS: Lipase 239 U/L (23-300)
[2024-01-30 06:10] LABS: Troponin I 0.014 ng/mL (0.000-0.034)
[2024-01-30] MEDS: POTASSIUM CHLORIDE INJ 40 MEQ in SODIUM CHLORIDE 0.9% IV 500 ML 130 MEQ IVPB (06:28)
[2024-01-30] MEDS: HYDROmorphone HCL INJ (*CRX) 1 MG/ML SYR 0.5 MG IV PUSH (06:43)
[2024-01-30] MEDS: LABETALOL HCL INJ 100 MG/20 ML VIAL 10 MG IV PUSH (06:43)
== END 2024-01-30 07:25 | disposition short-term general hospital (02) ==
PROVIDERS: Emergency Provider Emergency Medicine; PCP Family Medicine
DX: I71.43 Infrarenal abdominal aortic aneurysm, without rupture (principal); E87.6 Hypokalemia; I10 Essential (primary) hypertension; E78.00 Pure hypercholesterolemia, unspecified; Z86.19 Personal history of other infectious and parasitic diseases; Z85.46 Personal history of malignant neoplasm of prostate; Z87.891 Personal history of nicotine dependence; Z89.612 Acquired absence of left leg above knee; Z90.79 Acquired absence of other genital organ(s); R93.3 Abnormal findings on diagnostic imaging of other parts of digestive tract; R00.1 Bradycardia, unspecified
CPT/HCPCS: 36415; 74177; 80053; 83690; 84484; 85025; 93005; 96361; 96365; 96375; 99285; J1170; J1885; J2405; J3480; J7030; J7040; Q9967

== ENCOUNTER 2025-08-19 11:47 | Emergency (ER) | payer MEDICARE, SELFPAY ==
--- OUTSIDE RECORDS SUMMARY | 2025-08-19 11:50 | XMS_ITS | Clinical Summary ---
Author Organization [facility] Administrative Offices Address [address] [place] [id number] Care Team Providers Care Electrical Continuity Tester Name Role Phone Celi DON MD, Silvestre Primary Care Provider [phone] Allergies No known active allergies Medications verapamil SR (CALAN-SR) 240 mg Oral tablet Take 240 mg by mouth daily. Active hydrocodone-acet aminophen (LORCET 10/650) 10-650 mg Oral Tab Take 1 Tab by mouth every 4 hours as needed. Active almotriptan (AXERT) 12.5 mg Oral tablet Take 12.5 mg by mouth every 2 hours as needed. Active hyoscyamine (LEVSIN) 0.[address] 0.125 mg under tongue every 4 hours as needed. q 6hrs Active ondansetron (ZOFRAN) 4 mg Oral Tab Take 4 mg by mouth every 6 hours as needed. 01/14/2010 Active esomeprazole (NEXIUM) 40 mg Oral CpDR Take 1 Cap by mouth daily before breakfast. 30 Cap 1 01/17/2010 Active tcuawgq-yoaswy-d rotease (CREON 10) 249 mg (10,000- 37.5K-33K unit) Oral CpDR Take 1 Cap by mouth 4 times daily with meals. 120 Cap 0 01/17/2010 Active Active Problems Problem Noted Date Diagnosed Date Drug-induced acute pancreatitis 01/14/2010 Nausea & vomiting 01/14/2010 Dehydration 01/14/2010 Hypokalemia 01/14/2010 Hypertension 01/14/2010 Hemorrhoid 01/14/2010 Gastritis 01/14/2010 Family History Medical History Relation Name Comments Healthy Father Healthy Mother Relation Name Status Comments Father Alive Mother Alive Social History Tobacco Use Types Packs/Day Years Used Date Smoking Tobacco: Former Alcohol Use Standard Drinks/Week Comments No 0 (1 standard drink = 0.6 oz pur e alcohol) Sex and Gender Information Value Date Recorded Sex Assigned at Not on file 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 Gender Identity Not on file Sexual Orientation Not on file Last Filed Vital Signs Vital Sign Reading Time Taken Comments Blood Pressure 146/98 01/17/2010 10:53 AM CDT Pulse 81 01/17/2010 10:53 AM CDT Temperature 36.1 C (96.9 F) 01/17/2010 5:00 AM CDT Respiratory Rate 18 01/17/2010 5:00 AM CDT Oxygen Saturation 99% 01/17/2010 5:00 AM CDT Inhaled Oxygen Concentration - - Weight 85.7 kg (189 lb) 02/14/2010 10:05 AM CDT Height 175.3 cm (5' 9) 01/14/2010 8:00 PM CDT Body Mass Index 27.91 01/14/2010 8:00 PM CDT Plan of Treatment Health Maintenance Due Date Last Done Comments DTAP/TDAP/TD VACCINES (1 - Tdap) 1972 FIT-DNA Q 3 years 1998 FIT/FOBT Q 1 year 1998 Flex Sig/CT Colonography Q 5 years 1998 PNEUMOCOCCAL VACCINE 50+ YEARS (1 of 1 - PCV) 09/25/19 04 ZOSTER VACCINE (1 of 2) 2003 COLORECTAL SCREENING 01/13/2020 01/12/2010 Colorectal Cancer Screening 01/13/2020 INFLUENZA VACCINE (#1) 2025 RSV VACCINE (60+ or ) (1 - 1-dose 75+ series) 2028 Insurance [facility] BLUE ACCESS/TRUE BLUE PPO Advance Directives For more information, please contact: [phone] * Full Code (Latest Code Status on File) Date Activated Date Inactivated Comments 01/12/2010 9:16 AM 01/13/2010 2:01 AM Care Teams Electrical Continuity Tester Relationship Specialty Start Date End Date Silvestre Alatorre III, MD PCP - General 12/14/09
--- OUTSIDE RECORDS SUMMARY | 2025-08-19 11:50 | XMS_ITS | Encounter Summary ---
Author Organization [facility] Address [address] [facility] [place] [address] Care Team Providers Care Mica Miner Blasting Name Role Phone Licha Bowen MD Primary Care Provider Reason for Visit * Reason Onset Date Comments General 01/23/2018 Patient is reque sting to speak with MD about his pot usage Encounter Details Date Type Department Care Team (Late st Contact Info) Description 01/23/2018 Telephone [facility] General Internal Medicine [address] [id number] Vanessa Fajardo RN General (Patient is requesting to speak with MD about his pot usage) Social History Tobacco Use Types Packs/Day Years Used Date Smoking Tobacco: Every Day Smokeless Tobacco: Never Alcohol Use Standard Drinks/Week Comments No 0 (1 standard drink = 0.6 oz pur e alcohol) Sex and Gender Information Value Date Recorded Sex Assigned at Not on file 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 Patient's spouse stated that patient has gone several days without eating and has been drinking fluids but not able to keep them down. Patient is requesting a call back from MD. documented in this encounter Plan of Treatment Not on file documented as of this encounter Visit Diagnoses Not on filedocumented in this encounter Care Teams Mica Miner Blasting Relationship Specialty Start Date End Date Licha Bowen MD PCP - General 01/13/18 documented as of this encounter
--- OUTSIDE RECORDS SUMMARY | 2025-08-19 11:50 | XMS_ITS | Encounter Summary ---
Author Organization [facility] Address [address] [facility] [place] [address] Care Team Providers Care Production Mechanic Tin Cans Name Role Phone Licha Bowen MD Primary Care Provider Reason for Visit * Reason Onset Date Comments Patient Requested Call 01/23/2018 Encounter Details Date Type Department Care Team (Late st Contact Info) Description 01/23/2018 Telephone [facility] General Internal Medicine [address] [facility] [address] [place] [address] Licha Bowen MD [address] [facility] [address] [place], [place] [id number] Patient Requested Call Social History Tobacco Use Types Packs/Day Years Used Date Smoking Tobacco: Every Day Smokeless Tobacco: Never Alcohol Use Standard Drinks/Week Comments No 0 (1 standard drink = 0.6 oz pur e alcohol) Sex and Gender Information Value Date Recorded Sex Assigned at Not on file 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 Thank you , documented in this encounter Plan of Treatment Not on file documented as of this encounter Visit Diagnoses Not on filedocumented in this encounter Care Teams Production Mechanic Tin Cans Relationship Specialty Start Date End Date Licha Bowen MD PCP - General 01/13/18 documented as of this encounter
--- OUTSIDE RECORDS SUMMARY | 2025-08-19 11:50 | XMS_ITS | Encounter Summary ---
Author Organization [facility] Address [address] [place] [place] [address] Care Team Providers Care Granite Sandblaster Apprentice Name Role Phone Licha Bowen MD Primary Care Provider Reason for Visit * Reason Onset Date Comments MEDICATION REFILL 10/01/2018 Encounter Details Date Type Department Care Team (Late st Contact Info) Description 10/01/2018 Refill [facility] General Internal Medicine [address] [facility] [address] [place] [address] Licha Bowen MD [address] [facility] [address] [place], [place] [id number] MEDICATION REFILL Social History Tobacco Use Types Packs/Day Years Used Date Smoking Tobacco: Every Day Smokeless Tobacco: Never Alcohol Use Standard Drinks/Week Comments No 0 (1 standard drink = 0.6 oz pur e alcohol) Sex and Gender Information Value Date Recorded Sex Assigned at Not on file 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 JAYLENE:06-22-18 NOV: 12-28-18 FISHING GUIDE documented in this encounter Plan of Treatment Not on file documented as of this encounter Visit Diagnoses Not on filedocumented in this encounter Care Teams Granite Sandblaster Apprentice Relationship Specialty Start Date End Date Licha Bowen MD PCP - General 01/13/18 documented as of this encounter
--- OUTSIDE RECORDS SUMMARY | 2025-08-19 11:50 | XMS_ITS | Encounter Summary ---
Author Organization [facility] Address [address] [place] [address] Care Team Providers Care Staff Nuclear Weapons Officer Name Role Phone Licha Bowen MD Primary Care Provider Encounter Details Date Type Department Care Team (Late st Contact Info) Description 09/01/2019 Telephone [facility] [address] [place] [address] Mars Jensen MD [address] [address] Social History Tobacco Use Types Packs/Day Years Used Date Smoking Tobacco: Former Cigarettes 0 Q uit: 1984 Smokeless Tobacco: Never Alcohol Use Standard Drinks/Week Comments No 0 (1 standard drink = 0.6 oz pur e alcohol) Sex and Gender Information Value Date Recorded Sex Assigned at Not on file Legal Sex Male 8:33 AM CHIEF COMPRESSOR STATION ENGINEER Gender Identity Not on file Sexual Orientation Not on file documented as of this encounter Functional Status * Is person deaf or have serious hearing difficulty? Answer Date of Assessment Author No 06/28/2019 9:15 AM Francis Cervantes RN * Is person blind or have serious difficulty seeing? Answer Date of Assessment Author No 06/28/2019 9:15 AM Francis Cervantes RN * Does person have serious difficulty walking/climbing stairs? Answer Date of Assessment Author No 06/28/2019 9:15 AM Francis Cervantes RN * Does person have difficulty dressing/bathing? Answer Date of Assessment Author No 06/28/2019 9:15 AM Francis Cervantes RN * Does person have difficulty doing errands alone? Answer Date of Assessment Author No 06/28/2019 9:15 AM Francis Cervantes RN documented as of this encounter Mental Status * Does person have difficulty concentrating/remembering/making decisions? Answer Entry Date Author No 06/28/2019 9:15 AM Francis Cervantes RN documented in this encounter Miscellaneous Notes * Telephone Encounter - Angela Birmingham - 09/01/2019 1:09 PM CST Called patient to get scheduled for Dr. Jensen and he stated that his left wrist is not bothering him at the moment and he does not wish to move forward with surgery at this time. He will call back if something changes. Angela P. [phone] F COMPRESSOR STATION ENGINEER documented in this encounter Plan of Treatment Not on file documented as of this encounter Visit Diagnoses Not on filedocumented in this encounter Care Teams Staff Nuclear Weapons Officer Relationship Specialty Start Date End Date Licha Bowen MD PCP - General 01/13/18 documented as of this encounter
--- OUTSIDE RECORDS SUMMARY | 2025-08-19 11:50 | XMS_ITS | Clinical Summary ---
Author Organization [facility] Address [address] [place] [address] Care Team Providers Care Organ Pipe Maker Metal Name Role Phone Licha Bowen MD Primary Care Provider Source Comments [facility],non-owned Affiliates and Associated Physician Practices is amultiple site organization consisting of ambulatory clinics and hospital sitesin [place], [place], [place] and [place]. This disclosure is being madepursuant to the Care Everywhere program and may not contain all information available regarding this patient. Last updated 18.[facility] Allergies Active Allergy Reactions Criticality Noted Date Comments Sreekanth Inhibitors Dizziness Low 12/17/2009 cough cough Hydrocodone Nausea and/or Vomiting,Dizzines s Low 07/06/2010 Go through withdrawls Niacin, Antihyperlipidemic 0 Medications * Be aware that medications may not be up to date on this document. Alwaysverify current medications with the patient. almotriptan (AXERT) 12.5 MG tablet Take 1 tablet by mouth once as needed 12 tablet 08/24/2019 Active tadalafil (CIALIS) 5 MG tablet Take 1 tablet by mouth once daily 30 tablet 5 09/06/2019 Active atorvastatin (LIPITOR) 40 MG tablet Take 1 tablet by mouth once daily 90 tablet 12/15/2019 Active propranolol CR 24hr (INDERAL LA) 160 MG capsule Take 1 capsule by mouth once daily 30 capsule 11 06/26/2020 Active Active Problems Problem Noted Date Diagnosed Date History of carpal tunnel release of both wrists 03/24/2019 Carpal tunnel syndrome, bilateral upper limbs Trigger finger, left middle finger 03/24/2019 Trigger finger, left ring finger 03/24/2019 S/P AKA (Above Knee Amputation), left 11/28/2009 Migraines Hyperlipidemia ED (erectile dysfunction) Cannabinoid hyperemesis syndrome BPH (benign prostatic hyperplasia) AAA (abdominal aortic aneurysm) Bilateral carpal tunnel syndrome Ulnar neuropathy of left upper extremity Resolved Problems Problem Noted Date Diagnosed Date Resolved Date Lumbar radicular pain 07/06/20102017 Pancreas divisum 04/30/2010 01/15/2018 Overview (04/30/2010): Minor papillotomy and stent placement 04/26/10 Insomnia 02/01/2010 01/15/2018 Acute pancreatitis 01/15/2010 8 Overview (01/15/2010): Admitted [place]'s Claustrophobia 12/17/2009 01/15/2018 Screening procedure 12/04/2009 01/16/20 18 Overview (12/26/2009): Info from [facility] shows elev WBC at 14,000, BS 178, proteinuria, nonobstructing kidney stones Vomiting alone 11/28/2009 01/15/2018 Overview (05/22/2010): Sphincter of Oddi stenosis aggravated by fatty foods and overeating Migraine without aura 11/28/20092017 Overview (06/22/2015): Chronic low back pain 11/28/20092017 Osteoarthritis of hip 11/28/20092017 Overview (02/13/2015): Achilles Tendonitis, right 11/28/2009 0 01/15/2018 Essential hypertension 11/28/200901/15 Overview (06/22/2015): 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/2009 0 01/15/2018 Overview (11/28/2009): FH-longevity Bulging Discs x4 11/28/2009 01/15/2018 Immunizations Immunization Administration Dates Next Due DT 01/14/2005 Pneumococcal Pcv13 Conj 12/28/2018 Family History Medical History Relation Name Comments None Known Father None Known Mother Other - Metabolic Sister obesity Cancer - Colon Neg Hx Cancer - Prostate Neg Hx Cancer - Skin, Melanoma Neg Hx Cancer - Skin, Non Melanoma Neg Hx Relation Name Status Comments Father Mother Sister Alive Social History Tobacco Use Types Packs/Day Years Used Date Smoking Tobacco: Former Cigarettes 0 Q uit: 1984 Smokeless Tobacco: Never Tobacco Cessation:Ready to Q uit: No; Counseling Given: No Alcohol Use Standard Drinks/Week Comments No 0 (1 standard drink = 0.6 oz pur e alcohol) Sex and Gender Information Value Date Recorded Sex Assigned at Not on file Legal Sex Male 8:33 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 RESOURCE 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 SPECIALIST Gender Identity Not on file Sexual Orientation Not on file Last Filed Vital Signs Vital Sign Reading Time Taken Comments Blood Pressure 147/99 08/24/2019 9:04 AM WATER RESOURCE ENGINEERING SPECIALIST Pulse 67 08/24/2019 9:04 AM WATER RESOURCE ENGINEERING SPECIALIST Temperature 36.8 C (98.2 F) 08/24/2019 9:04 AM WATER RESOURCE ENGINEERING SPECIALIST Respiratory Rate 19 06/28/2019 9:25 AM CDT Oxygen Saturation 97% 08/24/2019 9:04 AM WATER RESOURCE ENGINEERING SPECIALIST Inhaled Oxygen Concentration - - Weight 90.7 kg (200 lb) 08/24/2019 9:04 AM WATER RESOURCE ENGINEERING SPECIALIST Height 177.8 cm (5' 10) 08/24/2019 9:04 AM WATER RESOURCE ENGINEERING SPECIALIST Body Mass Index 28.7 08/24/2019 9:04 AM WATER RESOURCE ENGINEERING SPECIALIST Plan of Treatment Health Maintenance Due Date Last Done Comments COLOGUARD (AGES 45-75) - COLON CA SCREENING [address] COLONOGRAPHY - COLON CA SCREENING 1955 FIT - COLON CA SCREENING 1955 FLEX SIG - COLON CA SCREENING 1955 Respiratory Syncytial Virus (RSV) Vaccine Pt: or over 60 yrs (1 - Risk 50-74 years 1-dose series) 2003 ZOSTER VACCINE (1 of 2) 2003 HEPATITIS B VACCINE (1 of 3 - Risk 3-dose series) 2013 DTAP/TDAP/TD VACCINES (2 - Tdap) 01/14/2015 01/14/2005 PNEUMOCOCCAL VACCINE 50+ (2 of 2 - PCV20 or PCV21) 12/29/2019 12/28/2018 SCREENING FOR DIABETES 05/12/2020 7, 02/18/2017, 01/05/2017, Additional history exists COLONOSCOPY - COLON CA SCREENING 05/22/2020 05/22/2010 Colorectal Cancer Screening 05/22/2020 DEPRESSION SCREENING 09/22/2024 MEDICARE AWV CALENDAR YEAR 2024 COVID-19 VACCINE ( season) 2025 INFLUENZA VACCINE (#1) 2025 HEPATITIS C SCREENING Completed 06/27/2017 , 05/12/2017, 02/18/2017, Additional history exists AAA SCREENING Completed 07/26/2019, 06/23, 01/30/2018 HIB VACCINE Aged Out No longer eligi ble based on patient's age to complete this topic HPV VACCINE Aged Out No longer eligi ble based on patient's age to complete this topic MENINGOCOCCAL (Group B) VACCINE SHARED DECISION-MAKING Aged Out No longer eligible based on patient's age to complete this topic MENINGOCOCCAL GROUPS A/C/Y/W VACCINE Aged Out No longer eligible based on patient's age to complete this topic Procedures Procedure Name Priority Date/Time Associated Diagnosis Comments VAS MANDO ABD DOPPLER AO IVC ILIAC Routine 07/26/2019 8:34 AM WATER RESOURCE ENGINEERING SPECIALIST Abdominal aortic aneurysm (AAA) without rupture COMPREHENSIVE METABOLIC PANEL Routine 05/12/2017 2:26 PM CDT HEPATITIS C REAL-TIME PCR QUANTASURE Routine 05/12/2017 2:26 PM CDT from Last 3 Months or Most Recently Relevant to Health Maintenance Results * VAS MANDO ABD DOPPLER AO IVC ILIAC (07/26/2019 8:34 AM WATER RESOURCE ENGINEERING SPECIALIST) Anatomical Region Laterality Modality Pelvis, Abdomen Intravascular Ul trasound 07/26/2019 7:50 AM WATER RESOURCE ENGINEERING SPECIALIST Narrative Procedure Note Reji Dean MD - 07/27/2019 us Giuliano Babin MD VASCULAR LAB ORDERABLES Edited R esult - Final * HEPATITIS C REAL-TIME PCR QUANTASURE (05/12/2017 2:26 PM CDT) [facility] Hepatitis C Virus RNA PCR Quantitative <15 NOT DETECTED <15 IU/mL [facility]) Hepatitis C Virus RNA Log IU/mL <1.18 NOT DETECTED <1.18 Log IU/mL [facility] ([facility]) See Note [facility] ([facility]) Comment: The analytical performance characteristics of this assay have been determined by [employer]. The modifications have not been cleared or approved by the FDA. This assay has been validated pursuant to the CLIA regulations and is used for clinical purposes. This test was performed using the LIZ(R)AmpliPrep/ LIZ(R)TaqMan(R)HCV Test,v2.0. For more information on this test, go to: http://education.Dwellable/faq/ZJX90q7 (This link is being provided for informational/ educational purposes only.) REPORT COMMENT: FASTING:NO Test Performed at: [facility] [address] [place] [address] ABNER COLLIER DO,MPH 05/12/2017 2:26 PM CDT 05/12/2017 2:26 PM CDT Ramesh Stanley MD LAB - SEROLOGY ORDERABL ES Final Result [facility] ([facility]) [address] * (ABNORMAL) COMPREHENSIVE METABOLIC PANEL (05/12/2017 2:26 PM CDT) [facility] Glucose 105(H) 65 - 99 mg/dL [facility] ([facility]) Comment: Fasting reference interval For someone without known diabetes, a glucose value between 100 and 125 mg/dL is consistent with prediabetes and should be confirmed with a follow-up test. BUN 12 7 - 25 mg/dL [facility] ([facility]) Creatinine 1.04 0.70 - 1.25 mg/dL [facility] ([facility]) Comment: For patients >49 years of age, the reference limit for Creatinine is approximately 13% higher for people identified as -Northern Irish. eGFR non- 76 > OR = 60 mL/min/1 .73m2 [facility] ([facility]) eGFR 88 > OR = 60 mL/min/1 .73m2 [facility] ([facility]) BUN/Creatinine Ratio NOT APPLICABLE 6 - 22 (calc) [facility] ([facility]) Sodium 142 135 - 146 mmol/L [facility] ([facility]) Potassium 3.8 3.5 - 5.3 mmol/L [facility] ([facility]) Chloride 106 98 - 110 mmol/L [facility] ([facility]) CO2 26 20 - 31 mmol/L [facility] ([facility]) Calcium 9.1 8.6 - 10.3 mg/dL [facility]) Protein Total 6.7 6.1 - 8.1 g/dL [facility] ([facility]) Albumin 4.1 3.6 - 5.1 g/dL [facility]) Globulin 2.6 1.9 - 3.7 g/dL (calc) [facility] ([facility]) Albumin/Globulin Ratio 1.6 1.0 - 2.5 (calc) [facility] ([facility]) Bilirubin Total 0.6 0.2 - 1.2 mg/dL [facility] ([facility]) Alkaline Phosphatase 72 40 - 115 U/L [facility] ([facility]) AST 16 10 - 35 U/L [facility]) ALT 17 9 - 46 U/L [facility] ([facility]) Comment: Test Performed at: [facility] [address] [place] [address] ABNER COLLIER DO,MPH 05/12/2017 2:26 PM CDT 05/12/2017 2:26 PM CDT Ramesh Stanley MD LAB - CHEMISTRY ORDERAB LES Final Result [facility]) [address] from Last 3 Months or Most Recently Relevant to Health Maintenance Insurance A[employer] MEDICARE ADV T [facility] MEDICARE ADV [facility] MEDICARE ADV TNA MEDICARE ADV Care Teams Organ Pipe Maker Metal Relationship Specialty Start Date End Date Licha Bowen MD PCP - General 01/13/18
--- OUTSIDE RECORDS SUMMARY | 2025-08-19 11:50 | XMS_ITS | Encounter Summary ---
Author Organization [facility] Address [address] [place] [address] Care Team Providers Care Income Tax Auditor Name Role Phone Licha Bowen MD Primary Care Provider Encounter Details Date Type Department Care Team (Late st Contact Info) Description 01/21/2018 Telephone [facility] [address] [address] [place] Social History Tobacco Use Types Packs/Day Years Used Date Smoking Tobacco: Every Day Smokeless Tobacco: Never Alcohol Use Standard Drinks/Week Comments No 0 (1 standard drink = 0.6 oz pur e alcohol) Sex and Gender Information Value Date Recorded Sex Assigned at Not on file Legal Sex Male 8:33 AM FINANCE CONSULTANT Gender Identity Not on file Sexual Orientation Not on file documented as of this encounter Miscellaneous Notes * Telephone Encounter - Tiff Durham - 01/21/2018 10:55 AM CDT RN attempted to triage patient for ACS and patient declined and requested to have a message forwarded to provider for MD's recommendations. Minor sweating and stomach cramps, no episode of emesis. Patient has decreased appetite has not hasmuch to want since Friday. Patient went to [facility] Friday for reported symptoms and patient request a dose of dilaudid since in past that resolved his symptoms. Patient reports that his previous provider Dr. Scott would prescribe him dilaudid tablet 2 to 4tablets to have on hand for these insistences.patient is requesting a CB from Dr. Bowen and a script for Dilaudid. CB# [phone]-[employer] documented in this encounter Plan of Treatment Not on file documented as of this encounter Visit Diagnoses Not on filedocumented in this encounter Care Teams Income Tax Auditor Relationship Specialty Start Date End Date Licha Bowen MD PCP - General 01/13/18 documented as of this encounter
--- OUTSIDE RECORDS SUMMARY | 2025-08-19 11:50 | XMS_ITS | Encounter Summary ---
Author Organization [facility] Address [address] [place] [address] Care Team Providers Care Dean Of Faculty Name Role Phone Licha Bowen MD Primary Care Provider Encounter Details Date Type Department Care Team (Late st Contact Info) Description 06/21/2019 Telephone [facility] [address] [email or web address] [address] [place] [address] Licha Bowen MD [address] [facility] [address] [place] [address] Social History Tobacco Use Types Packs/Day Years Used Date Smoking Tobacco: Former Cigarettes 0 Q uit: 1984 Smokeless Tobacco: Never Alcohol Use Standard Drinks/Week Comments No 0 (1 standard drink = 0.6 oz pur e alcohol) Sex and Gender Information Value Date Recorded Sex Assigned at Not on file Legal Sex Male 8:33 AM STEEL 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 Answer Date of Assessment Author No 06/22/2019 1:01 PM Rhoda Mckeon RN * In the past 30 days, have you actually had any thoughts about killing yourself? Answer Date of Assessment Author No 06/22/2019 1:01 PM Rhoda Mckeon, RN documented as of this encounter Plan of Treatment Not on file documented as of this encounter Visit Diagnoses Not on filedocumented in this encounter Care Teams Dean Of Faculty Relationship Specialty Start Date End Date Licha Bowen MD PCP - General 01/13/18 documented as of this encounter
--- OUTSIDE RECORDS SUMMARY | 2025-08-19 11:50 | XMS_ITS | Encounter Summary ---
Author Organization [facility] Address [address] [place] [place] [address] Care Team Providers Care Automobile Mechanic Helper Name Role Phone Licha Bowen MD Primary Care Provider Reason for Visit * Reason Onset Date Comments MEDICATION REFILL 06/21/2019 Encounter Details Date Type Department Care Team (Late st Contact Info) Description 06/21/2019 Refill [facility] [address] [facility] [address] [place] [address] Licha Bowen MD [address] [facility] [address] [place], [place] [id number] MEDICATION REFILL Social History Tobacco Use Types Packs/Day Years Used Date Smoking Tobacco: Former Cigarettes 0 Q uit: 1984 Smokeless Tobacco: Never Alcohol Use Standard Drinks/Week Comments No 0 (1 standard drink = 0.6 oz pur e alcohol) Sex and Gender Information Value Date Recorded Sex Assigned at Not on file Legal Sex Male 8:33 AM 21 DEALER Gender Identity Not on file Sexual Orientation [...] No 06/22/2019 1:01 PM Rhoda Mckeon RN documented as of this encounter Plan of Treatment Not on file documented as of this encounter Visit Diagnoses Not on filedocumented in this encounter Care Teams Automobile Mechanic Helper Relationship Specialty Start Date End Date Licha Bowen MD PCP - General 01/13/18 documented as of this encounter
--- OUTSIDE RECORDS SUMMARY | 2025-08-19 11:50 | XMS_ITS | Encounter Summary ---
Author Organization [facility] Address [address] [facility] [place] [address] Care Team Providers Care Hunting Guide Name Role Phone Licha Bowen MD Primary Care Provider Reason for Visit * Reason Onset Date Comments Vomiting 04/19/2019 Encounter Details Date Type Department Care Team (Late st Contact Info) Description 04/19/2019 Telephone [facility] [address] [facility] [address] [place] [address] Licha Bowen MD [address] [facility] [address] [place] [address] Vomiting Social History Tobacco Use Types Packs/Day Years Used Date Smoking Tobacco: Former Cigarettes 0 Q uit: 1984 Smokeless Tobacco: Never Alcohol Use Standard Drinks/Week Comments No 0 (1 standard drink = 0.6 oz pur e alcohol) Sex and Gender Information Value Date Recorded Sex Assigned at Not on file Legal Sex Male 8:33 AM DIETETIC TECHNICIAN REGISTERED Gender Identity Not on file Sexual Orientation Not on file documented as of this encounter Miscellaneous Notes * Telephone Encounter - Melody Nguyễn APRN-CNP - 04/22/2019 9:14 AM CDT Routing to PCP. VALENTIN Monet * Telephone Encounter - Lelia Rider RN - 04/22/2019 8:29 AM CDT Patient calliing again to request sleep aid and something for nausea. States he is still smoking marijuana. Please advise. CB [phone] * Telephone Encounter - HerminioMargieTiff - 04/21/2019 1:28 PM CDT Patient stats that yes he has and there is no doubt about it. Requesting a sleep aid since he not able to sleep. Patient requesting to call back he not able to continue conversation. Verified Cb # [phone] CMA Gopi's Message Please clarify if patient has smoked marijuana recently. ?? Patient also has cyclic vomiting syndrome. Per last note recommendations include: - continue prophylactic therapy: propranolol 160 SR - abortive therapy: triptan, antiemetics - taken as soon as symptoms start - trigger avoidance with hydration, adequate sleep, frequent small meals? Please call encourage small, frequent meals following the BRAT diet, use of his antiemetics and triptan and adequate hydration. Also needs to avoid marijuana use. ?? If patient has symptoms of dehydration, please triage for ACS. ?? Melody Manrique APRN-CNP * Telephone Encounter - Melody Nguyễn APRN-CNP - 04/19/2019 5:18 PM CDT Please clarify if patient has smoked marijuana recently. Patient also has cyclic vomiting syndrome. Per last note recommendations include: - continue prophylactic therapy: propranolol 160 SR - abortive therapy: triptan, antiemetics - taken as soon as symptoms start - trigger avoidance with hydration, adequate sleep, frequent small meals? Please call encourage small, frequent meals following the BRAT diet, use of his antiemetics and triptan and adequate hydration. Also needs to avoid marijuana use. If patient has symptoms of dehydration, please triage for ACS. Melody Manrique APRN-CNP * Telephone Encounter - Junior Mccollum - 04/19/2019 4:30 PM CDT Pt's called to request a call back regarding the pt's Cannabinoid hyperemesis syndrome, and reports he is having an attack. Reports the pt has not been able to eat since night, without throwing up or becoming nauseous, states the pt has been able to keep fluids down and she doesn't b elieve he is dehydrated. Pt's is requesting to be called at [phone] to be notified of anything the pt can take to calm his stomach and help him. Caller informed that a message would be sentto the provider regarding this matter, and recommended that the pt also contact the local pharmacist for recommendations, and provided the closing statement, caller verbalized understanding Message routed to the provider for further review and assistance documented in this encounter Plan of Treatment Not on file documented as of this encounter Visit Diagnoses Not on filedocumented in this encounter Care Teams Hunting Guide Relationship Specialty Start Date End Date Licha Bowen MD PCP - General 01/13/18 documented as of this encounter
[2025-08-19 11:56] VITALS: BP 200/97; PULSE 79; RESP 18; TEMP 36.6; O2SAT 100
--- NOTE | 2025-08-19 12:06 | ED_ITS ---
HPI - Skin/Abscess/Foreign Bdy General Chief complaint: Skin/Abscess/Foreign Body Stated complaint: L leg cyst? Time Seen by Provider: 08/19/25 11:59 History of Present Illness HPI narrative: About 3-4 days ago patient noticed a growing painful lump on his left upper thigh. Had this years ago that required I&D; no fevers. Related Data Home Medications ?Medication ?Instructions ?Recorded ?Confirmed ?Last Taken ?Type almotriptan malate 12.5 mg tablet 12.5 mg PO PRN PRN H eadache 08/11/19 02/11/24 07/11/20 History atorvastatin 40 mg tablet 40 mg PO DAILY 08/11/1901/2107/11/20 History propranolol 160 mg capsule,24 160 mg PO DAILY 08/11/19 02/11/24 01/26/24 History hr,extended release sulfasalazine 500 mg tablet 1,000 mg PO BID 01/21/24 0 02/11/24 Unknown History Allergies Allergy/AdvReac Type Severity Reaction Status Date / Time hydrocodone AdvReac Unknown FROM ABUSE Verified 02/10/24 09:05 IN YOUNGER YEARS Review of Systems Review of Systems: per HPI PMFSH Past Medical History Medical History (Updated 08/19/25 @ 12:54 by Josette Devine MD) History of blood transfusion 1983 Hepatitis C infection Vertigo Hyperlipidemia Migraines Hx of prostatic malignancy Internal hemorrhoid, bleeding Hematochezia High cholesterol Hypertension Surgical History Surgical History (Updated 02/10/24 @ 09:21 by Brielle Flores, [facility]) History of rectal surgery Transanal hemorrhoidal dearterialization procedure with proctopexy a prolapsing internal hemorrhoids 01/26/24 Hx of endoscopic retrograde cholangiopancreatography Hx of prostatectomy History of left above knee amputation Social History Social History (Updated 02/10/24 @ 09:09 by Rosetta He CMA) Smoking packs per day: 2 Smoking cigarettes per day: 40.0 Years smoked: 15 Smoking pack-years: 30.00 Smoking status: Former smoker Tobacco type: cigarettes Smoking end date: 09/22/87 Alcohol intake: former Alcohol use details: last 1984 Substance use: current Substance use type: marijuana 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 MARIJUANA Last use: 01/21/24 Lack of Transportation: No Lack of Food: Never True Current Housing: I Have Housing Concerned About Future Housing: No Difficulty Paying Gas/Electric Bills: No Difficulty Paying for Meds: No Currently Unemployed: Decline to Answer Education: High School Diploma/GED Difficulty w/ Childcare or Family Care: No Living arrangements: with family Gender identity (if verbalized by the patient): Male Spiritual care concerns: No Agree to blood products: Yes Exam Narrative: EXAMINATION OF ORGAN SYSTEMS/BODY AREAS: Constitutional: Vital signs per nursing GENERAL:[No acute distress, non-toxic appearing.] HEAD: Normal with no signs of head trauma. EYES: EOMI, conjunctiva normal ENT: Hearing grossly intact LUNGS: Nonlabored breathing. HEART: [Regular rate and rhythm] ABD: [Soft], [nontender to palpation] EXT: L AKA SKIN: about 1-2cm lump to L upper leg/lower buttock NEURO: [Alert and oriented x 3. No gross focal sensory or strength deficits.] PSYCH: Normal affect Course Vital Signs Vital signs: Vital Signs Temperature 97.9 F 08/19/25 11:56 Pulse Rate 79 08/19/25 11:56 Respiratory Rate 18 08/19/25 11:56 Blood Pressure 200/97 H 08/19/25 11:56 Pulse Oximetry 100 08/19/25 11:56 Oxygen Delivery Room Air 08/19/25 11:56 Temperature 97.9 F 08/19/25 11:56 Pulse Rate 79 08/19/25 11:56 Respiratory Rate 18 08/19/25 11:56 Blood Pressure 200/97 H 08/19/25 11:56 Pulse Oximetry 100 08/19/25 11:56 Oxygen Delivery Room Air 08/19/25 11:56 MDM - Skin/Abscess/Foreign Bdy MDM Narrative Medical decision making narrative: MEDICAL DECISION MAKING AND COURSE IN THE ED WITH INTERPRETATION/REVIEW OF DIAGNOSTIC STUDIES: Electronic medical record was reviewed. Patient presented to the ED with complaint of painful skin rash. Vitals showing high blood pressure however patient has not taken his blood pressure medication yet this morning and he has a migraine. Physical exam revealed area of tenderness and induration to the L upper thigh/lower buttock. Bedside US showing cobblestoning but a small darker area that I feel may be worth trying to drain if fluid pocket. Incision and drainage attempted here here, verbal consent obtained and risks/benefits explained. Skin was cleaned and [0.25% bupivacaine] solution was injected to make a wheal for local anesthesia. A scalpel was used to make a [3 mm] incision where I see maximal hypoechoic area on bedside US; tiny serosanguinous amount drained but no larger purulent discharge. There was [minimal] bleeding, patient tolerated procedure [well]. Wound was left open to allow for further drainage. [Patient was given doxycycline here and a course to continue at home.] The patient is discharged home in stable condition. I have asked the patient to return to the emergency department for worsening pain, worsening and increasing size of skin infection, fevers/chills. The patient is instructed to follow up with [PCP] in [2] days. Patient verbalized understanding. Discharge Plan Discharge Clinical Impression: Skin infection Patient Disposition: Home Condition: Stable Instructions: Antibiotic Form, Cellulitis (ED) Additional Instructions: Take the antibiotics as prescribed. Please follow-up with doctor in the next 3- 4 days. If your symptoms worsen you should return to the emergency room. Patient Language: Hungarian Prescriptions: New doxycycline hyclate 100 mg capsule 100 mg PO Q12H 7 Days Qty: 14 0RF No Action sulfasalazine 500 mg tablet 1,000 mg PO BID docusate sodium [Colace] 100 mg capsule 100 mg PO BID Qty: 30 1RF almotriptan malate 12.5 mg tablet 12.5 mg PO PRN PRN (Reason: Headache) atorvastatin 40 mg tablet 40 mg PO DAILY propranolol 160 mg capsule,extended release 24 hr 160 mg PO DAILY Follow-up/Referrals: Noreen,Graham Zurita MD [Primary Care Provider, Unknown]
[2025-08-19] MEDS: DOXYCYCLINE HYCLATE 100 MG TABLET PO (12:13)
[2025-08-19] MEDS: BUPIVACAINE/EPINEPHRINE 0.5% 30 ML VIAL 10 ML INFILTRATE (12:26)
--- OUTSIDE RECORDS SUMMARY | 2025-08-19 12:40 | XMS_ITS | Encounter Summary ---
Author Organization [facility] Address [address] [place] [address] Care Team Providers Care Molder Pipe Covering Name Role Phone Licha Bowen MD Primary Care Provider Encounter Details Date Type Department Care Team (Late st Contact Info) Description 09/01/2019 Telephone [facility] [address] [place] [address] Mars Jensen MD [address] [place] [address] Social History Tobacco Use Types Packs/Day Years Used Date Smoking Tobacco: Former Cigarettes 0 Q uit: 1984 Smokeless Tobacco: Never Alcohol Use Standard Drinks/Week Comments No 0 (1 standard drink = 0.6 oz pur e alcohol) Sex and Gender Information Value Date Recorded Sex Assigned at Not on file Legal Sex 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 Angela P. [phone] F TECHNICIAN documented in this encounter Plan of Treatment Not on file documented as of this encounter Visit Diagnoses Not on filedocumented in this encounter Care Teams Molder Pipe Covering Relationship Specialty Start Date End Date Licha Bowen MD PCP - General 01/13/18 documented as of this encounter
--- OUTSIDE RECORDS SUMMARY | 2025-08-19 12:40 | XMS_ITS ---
Author Organization [facility] Address [address] [place] [address] Care Team Providers Care Weapons Officer Name Role Phone Graham Sorto MD Primary Care Provider Dillon Bowen MD Unavailable [phone] [place] MD Unavailable [phone] Active Problems Problem Noted Date Diagnosed Date Encounter for surgical after care following surgery of circulatory system 04/11/2025 Abdominal aortic aneurysm (A AA) 3.0 cm to 5.5 cm in diameter in male 08/30/2024 AAA (abdominal aortic aneurysm) without rupture 08/30/2024 Abdominal aortic aneurysm (AAA) without rupture 08/03/2024 Left carpal tunnel syndrome 03/22/2024 Infrarenal abdominal aortic aneurysm (AAA) witho ut rupture 01/30/2024 Assessment & Plan (01/30/2024 1:15 PM CDT): known AAA 3.9 on US 08/13 that has been monitored OP. He presented to OSH ED where they read his AAA as 5.2cm now and BP 180/115. Tx to [facility] -impulse control -BP management as elsewhere -unlikely this is contributing to abdominal pain, plan noted elsewhere Prostate CA 09/27/2022 Cancer Staging:Clinical stage from 09/27/2022:Stage IIC(cT1c, cN0, cM0, PSA: 8.7, Grade Group: 3) - Signed by Dillon Bowen MD on 09/27/2022 Assessment & Plan (01/30/2024 1:11 PM CDT): S/p RALP on 01/13/2023 with bilateral pelvic lymph node dissection. PSA was 10.53 preoperatively. Final pathology was karrie 3+4 prostate cancer with focal EPE, bladder neck involvement and positive nonlimited bladder margins. On leflunomide at home -restart home meds ED (erectile dysfunction) 12/03/2019 Cannabinoid hyperemesis syndrome 12/03/2019 Ulnar neuropathy of left upper extremity 020 Migraines 12/03/2019 Hyperlipidemia 12/03/2019 Assessment & Plan (08/01/2021 9:41 AM PROCESSOR INSPECTOR): -check lipids Bilateral carpal tunnel syndrome 03/24/2019 History of carpal tunnel release of both wrists 03/24/2019 Triggering of digit 03/24/2019 Hypertension 01/14/2010 Assessment & Plan (01/30/2024 1:11 PM CDT): Takes propranolol at home -restart as able Assessment & Plan (09/05/2021 8:55 AM PROCESSOR INSPECTOR): -above goal, adherent with current medication (propranolol 160 mg), resistant to addition of CCB -encouraged him to monitor blood pressure at home and call with readings in 2-4 weeks Assessment & Plan (08/01/2021 9:41 AM PROCESSOR INSPECTOR): -above goal in office, has been out of propranolol -resume propranolol -monitor blood pressure at home, if consistently > 130/80 will return for follow up -check BMP S/P AKA (above knee amputation) 11/28/2009 Assessment & Plan (09/05/2021 8:54 AM PROCESSOR INSPECTOR): -unfortunately trazodone did not help with disrupted sleep 2/2 phantom pain -discussed trial of Remeron or Gabapentin, patient not interested at this time Assessment & Plan (08/01/2021 9:42 AM PROCESSOR INSPECTOR): -trial trazodone 50 mg nightly prn for disrupted sleep 2/2 phantom pain PAD (peripheral artery disease) Current Treatment and Therapy Plans Eligard Injection - 45 mg every 24 weeks* Plan Start Date:11/04/2022 Plan Provider:Dillon Bowen MD Linked Problems Prostate CA Treatment Medications leuprolide acetate (6 month) (ELIGARD) Past Treatment and Therapy Plans No past plan information found. Lifetime Dose Tracking * Chemical Lifetime Dose Automatic Entry Manual Entr y Fluoro Time 14.3 minutes 14.3 minutes 0 minutes Air kerma at the reference point (Ka,r) 694 mGy 6 94 mGy 0 mGy DLP 4,061 mGycm 4,061 mGycm 0 mGycm Resolved Problems Problem Noted Date Diagnosed Date Resolved Date Periumbilical abdominal pain 01/30/2024 02/03/2024 Assessment & Plan (01/30/2024 1:59 PM CDT): Presentedto ED with abdominal pain extending from xiphoid to infraumbililical area since hemorrhoid surgery on 01/25. Patient attributes the pain to the oxycodone he took after hs hemorrhoid surgery, and states that he had similar abdominal pain 10 years ago when takng hydrocodone. He describes the pain as someone wringing something out inside him, with no radiation to his back or other sites, and endorses anorexia since surgery on Friday. -AAA management as elsewhere -bowel reg -stop oxycodone -start diet and monitor response PMR (polymyalgia rheumatica) 04/30/2023 05/04/2024 Prostate cancer 01/13/2023 04/30/2023 Elevated PSA 06/17/2022 04/30/2023 Overview (06/17/2022): Added automatically from request for surgery [id number] Neck pain 03/13/2022 04/30/2023 Right wrist pain 03/13/2022 04/30/2023 Elevated coronary artery calcium score 11/14/2021 09/06/2024 Vertigo 09/05/2021 02/03/2024 Assessment & Plan (09/05/2021 8:53 AM PROCESSOR INSPECTOR): -patient left office before physical exam could be conducted -no recent episodes -presentation of symptoms c/w vertigo, appointment with ENT as scheduled next week AAA (abdominal aortic aneurysm) 12/03/2019 02/03/2024 BPH with elevated PSA 12/03/20192022 Assessment & Plan (08/01/2021 9:41 AM PROCESSOR INSPECTOR): -follow up urology as scheduled Hemorrhoid 01/14/2010 09/06/2024 Assessment & Plan (01/30/2024 1:46 PM CDT): Referred to GI for 3rd degree hemorrhoids. Underwent hemorroidectomy on Thursday 01/25 -bowel reg Gastritis 01/14/2010 10/10/2021 Drug-induced acute pancreatitis 01/14/2010 04/30/2023 Dehydration 01/14/2010 09/05/2021 Nausea & vomiting 01/14/2010 10/10/2021 Hypokalemia 01/14/2010 02/03/2024 Assessment & Plan (01/30/2024 1:45 PM CDT): K 2.7 in ED. Given 40meq of KCL -follow up BMP tonight -replete further as needed Migraine 02/03/2024
--- OUTSIDE RECORDS SUMMARY | 2025-08-19 12:40 | XMS_ITS | Clinical Summary ---
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 Gender Identity Not on file Sexual Orientation Not on file Plan of Treatment Health Maintenance Due Date Last Done Comments Colorectal Cancer Screening Colonoscopy (10 Years) 1953 Hepatitis C 1971 Zoster Vaccines (2 of 3) 09/27/2015 08/02/2015 Annual Medicare Wellness Visit 2018 Pneumococcal Vaccine: 50+ Years (3 of 3 - PCV20 or PCV21) 12/29/2023 12/28/2018, 10/29/2014 DTaP, Tdap and Td Vaccines ( 2 - Td or Tdap) 11/18/2024 11/18/2014, 01/14/2005 COVID-19 Vaccine (4 - 2024-2 6 season) 2025 06/18/2021, 11/24/2020, 10/27/2020 Influenza Adult (#1) 2025 06/22/2021, 08/12/2019 RSV Immunization or 60+ Years (1 - 1-dose 75+ series) 2028 Hepatitis A Vaccines Aged Out No long er eligible based on patient's age to complete this topic Meningococcal B Vaccine Aged Out No l onger eligible based on patient's age to complete this topic Meningococcal Vaccine Aged Out No katlin donna eligible based on patient's age to complete this topic RSV Immunizations Under 20 Months Aged Out No longer eligible b ased on patient's age to complete this topic Insurance [employer]ET[employer] MEDICARE Care Teams Claims Auditor Relationship Specialty Start Date End Date Graham Sorto MD [address] [facility] [address] [address] PCP - General FAMILY PRACTICE 10/22/21
--- OUTSIDE RECORDS SUMMARY | 2025-08-19 12:40 | XMS_ITS | Encounter Summary ---
Author Organization [facility] Address [address] [facility] [place] [address] Care Team Providers Care Operations Boardman Name Role Phone Licha Bowen MD Primary Care Provider Reason for Visit * Reason Onset Date Comments General 01/23/2018 Patient is reque sting to speak with MD about his pot usage Encounter Details Date Type Department Care Team (Late st Contact Info) Description 01/23/2018 Telephone [facility] General Internal Medicine [address] [address] Vanessa Fajardo RN General (Patient is requesting [...] on file Legal Sex Male 8:33 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
--- OUTSIDE RECORDS SUMMARY | 2025-08-19 12:40 | XMS_ITS | Encounter Summary ---
Author Organization [facility] Address [address] [facility] [place] [address] Care Team Providers Care Residential Collections Name Role Phone Licha Bowen MD Primary Care Provider Reason for Visit * Reason Onset Date Comments Patient Requested Call 01/23/2018 Encounter Details Date Type Department Care Team (Late st Contact Info) Description 01/23/[address] [facility] 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 Thank you , documented in this encounter Plan of Treatment Not on file documented as of this encounter Visit Diagnoses Not on filedocumented in this encounter Care Teams Residential Collections Relationship Specialty Start Date End Date Licha Bowen MD PCP - General 01/13/18 documented as of this encounter
--- OUTSIDE RECORDS SUMMARY | 2025-08-19 12:40 | XMS_ITS | Encounter Summary ---
Author Organization [facility] Address [address] [place] [address] Care Team Providers Care Loss Prevention Operations Manager Name Role Phone Licha Bowen MD Primary Care Provider Encounter Details Date Type Department Care Team (Late st Contact Info) Description 06/21/2019 Telephone [facility] General Internal Medicine [address] [facility] [address] [place] [address] Licha Bowen MD [address] [facility] [address] [place] [address] Social History Tobacco Use Types Packs/Day Years Used Date Smoking Tobacco: Former Cigarettes 0 Q uit: 1984 Smokeless Tobacco: Never Alcohol Use Standard Drinks/Week Comments No 0 (1 standard drink = 0.6 oz pur e alcohol) Sex and Gender Information Value Date Recorded Sex Assigned at Not on file Legal Sex Male 8:33 AM ARTIST'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
--- OUTSIDE RECORDS SUMMARY | 2025-08-19 12:40 | XMS_ITS | Encounter Summary ---
Author Organization [facility] Address [address] [facility] [place] [address] Care Team Providers Care Peripatologist Name Role Phone Licha Bowen MD Primary Care Provider Reason for Visit * Reason Onset Date Comments MEDICATION REFILL 06/21/2019 Encounter Details Date Type Department Care Team (Late st Contact Info) Description 06/21/2019 Refill [facility] General Internal Medicine [address] [facility] [address] [place] [address] Licha Bowen MD [address] [facility] [address] [place], [place] [id number] MEDICATION REFILL Social History Tobacco Use Types Packs/Day Years Used Date Smoking Tobacco: Former Cigarettes 0 Q uit: 1984 Smokeless Tobacco: Never Alcohol Use Standard Drinks/Week Comments No 0 (1 standard drink = 0.6 oz pur e alcohol) Sex and Gender Information Value Date Recorded Sex Assigned at Not on file Legal Sex Male 8:33 AM CALL CENTER RN Gender Identity Not on file Sexual Orientation [...] on filedocumented in this encounter Care Teams Peripatologist Relationship Specialty Start Date End Date Licha Bowen MD PCP - General 01/13/18 documented as of this encounter
--- OUTSIDE RECORDS SUMMARY | 2025-08-19 12:40 | XMS_ITS | Encounter Summary ---
Author Organization [facility] Address [address] [facility] [place] [address] Care Team Providers Care Bar Assistant Name Role Phone Licha Bowen MD Primary Care Provider Reason for Visit * Reason Onset Date Comments Vomiting 04/19/2019 Encounter Details Date Type Department Care Team (Late st Contact Info) Description 04/19/2019 Telephone [facility] General Internal Medicine [address] [facility] [address] [place] [address] Licha Bowen MD [address] [facility] [address] [place] [address] Vomiting Social History Tobacco Use Types Packs/Day Years Used Date Smoking Tobacco: Former Cigarettes 0 Q uit: 1984 Smokeless Tobacco: Never Alcohol Use Standard Drinks/Week Comments No 0 (1 standard drink = 0.6 oz pur e alcohol) Sex and Gender Information Value Date Recorded Sex Assigned at Not on file Legal Sex Male 8:33 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 Please advise. CB [phone] * Telephone Encounter - HerminioMargieTiff - 04/21/2019 1:28 PM CDT Patient stats that yes he has and there is no doubt about it. Requesting a sleep aid since he not able to sleep. Patient requesting to call back he not able to continue conversation. Verified Cb # [phone] TITLE LAW[employer]ER Gopi's Message Please clarify if patient has [...] Pt's is requesting to be called at [phone] to be notified of anything the pt [...] on filedocumented in this encounter Care Teams Bar Assistant Relationship Specialty Start Date End Date Licha Bowen MD PCP - General 01/13/18 documented as of this encounter
--- OUTSIDE RECORDS SUMMARY | 2025-08-19 12:40 | XMS_ITS | Clinical Summary ---
Author Organization [facility] Address [address] [place] [address] Care Team Providers Care Director Search Name Role Phone Licha Bowen MD Primary Care Provider Source Comments [facility],non-owned Affiliates and Associated Physician Practices is amultiple site organization consisting of ambulatory clinics and hospital sitesin [place], [place], [place] and [place]. This disclosure is being madepursuant to the Care Everywhere program and may not contain all information available regarding this patient. Last updated 18.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 Gender Identity Not on file Sexual Orientation Not on file Last Filed Vital Signs Vital Sign Reading Time Taken Comments Blood Pressure 147/99 08/24/2019 9:04 AM FILM EXAMINER Pulse 67 08/24/2019 9:04 AM FILM EXAMINER Temperature 36.8 C (98.2 F) 08/24/2019 9:04 AM FILM EXAMINER Respiratory Rate 19 06/28/2019 9:25 AM CDT Oxygen Saturation 97% 08/24/2019 9:04 AM FILM EXAMINER Inhaled Oxygen Concentration - - Weight 90.7 kg (200 lb) 08/24/2019 9:04 AM FILM EXAMINER Height 177.8 cm (5' 10) 08/24/2019 9:04 AM FILM EXAMINER Body Mass Index 28.7 08/24/2019 9:04 AM FILM EXAMINER Plan of Treatment Health Maintenance Due Date [...] AO IVC ILIAC Routine 07/26/2019 8:34 AM FILM EXAMINER Abdominal aortic aneurysm (AAA) without rupture COMPREHENSIVE METABOLIC PANEL Routine 05/12/2017 2:26 PM CDT HEPATITIS C REAL-TIME PCR QUANTASURE Routine 05/12/2017 2:26 PM CDT from Last 3 Months or Most Recently Relevant to Health Maintenance Results * VAS MANDO ABD DOPPLER AO IVC ILIAC (07/26/2019 8:34 AM FILM EXAMINER) Anatomical Region Laterality Modality Pelvis, Abdomen Intravascular Ul trasound 07/26/2019 7:50 AM FILM EXAMINER Narrative Procedure Note Reji Dean MD - 07/27/2019 us Giuliano Babin MD VASCULAR LAB ORDERABLES Edited R esult - Final * HEPATITIS C REAL-TIME PCR QUANTASURE (05/12/2017 2:26 PM CDT) [facility] Hepatitis C Virus RNA PCR Quantitative <15 NOT DETECTED <15 IU/mL [facility] ([facility]) Hepatitis C Virus RNA Log IU/mL <1.18 NOT DETECTED <1.18 Log IU/mL [facility] ([facility]) See Note [facility] ([facility]) Comment: The analytical performance characteristics of this assay have been determined by [employer]. The modifications have not been cleared or approved by the FDA. This assay has been validated pursuant to the CLIA regulations and is used for clinical purposes. This test was performed using the LZI(R)AmpliPrep/ LIZ(R)TaqMan(R)HCV Test,v2.0. For more information on this test, go to: http://education.Fridge/faq/ZQB07e3 (This link is being provided for informational/ educational purposes only.) REPORT COMMENT: FASTING:NO Test Performed at: [facility] [id number] [place] [address] ABNER COLLIER DO,MPH 05/12/2017 2:26 PM CDT 05/12/2017 2:26 PM CDT Ramesh Stanley MD LAB - SEROLOGY ORDERABL ES Final Result [facility] ([facility]) [address] * (ABNORMAL) COMPREHENSIVE METABOLIC PANEL (05/12/2017 2:26 PM CDT) [facility] Glucose 105(H) 65 - 99 mg/dL [facility] ([facility]) Comment: Fasting reference interval For someone without [...] approximately 13% higher for people identified as -Haitian. eGFR non- 76 > OR = 60 [...] U/L [facility] ([facility]) Comment: Test Performed at: [facility] [address] [place] [address] ABNER COLLIER DO,MPH 05/12/2017 2:26 PM CDT 05/12/2017 2:26 PM CDT Ramesh Stanley MD LAB - CHEMISTRY ORDERAB LES Final Result [facility] ([facility]) [id number] from Last 3 Months or Most Recently Relevant to Health Maintenance Insurance [employer] MEDICARE ADV T [employer] MEDICARE ADV COMMUNITY HEALTH MEDICARE ADV TNA MEDICARE ADV Care Teams Director Search Relationship Specialty Start Date End Date Licha Bowen MD PCP - General 01/13/18
--- OUTSIDE RECORDS SUMMARY | 2025-08-19 12:40 | XMS_ITS | Clinical Summary ---
Author Organization [facility] Administrative Offices Address [address] [place] [id number] Care Team Providers Care All Round Butcher Name Role Phone Celi DON MD, Silvestre Primary Care Provider [phone] Allergies No known active allergies Medications verapamil [...] before breakfast. 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
--- OUTSIDE RECORDS SUMMARY | 2025-08-19 12:40 | XMS_ITS | Encounter Summary ---
Author Organization [facility] Address [address] [place] [address] Care Team Providers Care Judicial Clerk Name Role Phone Licha Bowen MD Primary Care Provider Reason for Visit * Reason Onset Date Comments MEDICATION REFILL 10/01/2018 Encounter Details Date Type Department Care Team (Late st Contact Info) Description 10/01/2018 Refill [facility] General Internal Medicine [address] [facility] [address] [place] [address] Licha Bowen MD [address] [facility] [address] [place], [place] [id number] MEDICATION REFILL Social History Tobacco Use Types Packs/Day Years Used Date Smoking Tobacco: Every Day Smokeless Tobacco: Never Alcohol Use Standard Drinks/Week Comments No 0 (1 standard drink = 0.6 oz pur e alcohol) Sex and Gender Information Value Date Recorded Sex Assigned at Not on file 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 JAYLENE:06-22-18 NOV: 12-28-18 TRIC FAN ASSEMBLER documented in this encounter Plan of Treatment Not on file documented as of this encounter Visit Diagnoses Not on filedocumented in this encounter Care Teams Judicial Clerk Relationship Specialty Start Date End Date Licha Bowen MD PCP - General 01/13/18 documented as of this encounter
--- OUTSIDE RECORDS SUMMARY | 2025-08-19 12:40 | XMS_ITS | Encounter Summary ---
Author Organization [facility] Address [address] [place] [address] Care Team Providers Care Operations Support Professionals Name Role Phone Graham Sorto MD Primary Care Provider [phone] Dillon Bwoen MD Unavailable [phone] Blue Castle MD Unavailable [phone] Reason for Visit * Reason Onset Date Comments Med Refill 06/20/2025 Encounter Details Date Type Department Care Team (Late st Contact Info) Description 06/20/2025 Telephone [facility] Family Medicine at [address] [place] [address] Graham Sorto MD [address] [place] [id number] Med Refill Social History Tobacco Use Types Packs/Day Years Used Date Smoking Tobacco: Former Cigarettes 2 20 1 970 - 1989 Smokeless Tobacco: Never [facility] Utilities Answer Date Recorded In the past 12 months has [employer]), gas, oil, or water [employer] threatened to shut off services in your home? No 08/31/2024 Social Connection and Isolation Panel Answer Date Recorded In a typical week, how many times do you talk on the phone with family, friends, or neighbors? More than three times a week 08/31/2024 How often do you get togethe r with friends or relatives? Twice a week 08/31/2024 How often do you attend [facility] or taoism services? Never 08/31/2024 Do you belong to any clubs o r organizations such as yazidism groups, unions, fraternal or athletic groups, or school groups? No 08/31/2024 How often do you attend meet ings of the clubs or organizations you belong to? Never 08/31/2024 Are you , , di vorced, , never , or living with a partner? 08/31/2024 AUDIT-C Answer Date Recorded Q1: How often do you have a drink containing alcohol? Never 08/30/2024 Q2: How many drinks containi ng alcohol do you have on a typical day when you are drinking? Patient does not drink Q3: How often do you have si x or more drinks on one occasion? Never 08/30/2024 Overall Financial Resource Strain (CARDIA) Answe r Date Recorded How hard is it for you to pa y for the very basics like food, housing, medical care, and heating? Not hard at all 08/31/2024 PHQ-2 Answer Date Recorded PHQ-2 Total Score (If total score is 3 or more points, staff should administer the PHQ-9) 0 05/09/2025 Hunger Vital Sign Answer Date Recorded Within the past 12 months, y ou worried that your food would run out before you got the money to buy more. Never true 08/31/20 24 Within the past 12 months, t he food you bought just didn't last and you didn't have money to get more. Never true 08/31/2024 PRAPARE - Transportation Answer Date Re corded In the past 12 months, has l ack of transportation kept you from medical appointments or from getting medications? No 08/22 In the past 12 months, has l ack of transportation kept you from meetings, work, or from getting things needed for daily living? No 08/31/2024 Housing Stability Vital Sign Answer Anton e Recorded In the last 12 months, was t here a time when you were not able to pay the mortgage or rent on time? No 08/31/2024 In the past 12 months, how m any times have you moved where you were living? 0 08/31/2024 At any time in the past 12 m [facility], were you homeless or living in a care home (including now)? No 08/31/2024 Personal Safety Answer Date Recorded Have you ever been in or are you currently in a harmful physical or emotional relationship or is someone making you feel afraid or unsafe? 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 Gender Identity Not on file Sexual Orientation Not on file documented as of this encounter Ordered Prescriptions Prescription Sig Dispense Quantity Refills Last Filled Start Date End Date atorvastatin (LIPITOR) 40 mg tablet Take 1 tablet (40 mg total) by mouth daily 90 tablet 2 06/20/2025 documented in this encounter Plan of Treatment Not on file documented as of this encounter Visit Diagnoses Not on filedocumented in this encounter Discontinued Medications Medication Sig Discontinue Reason Start Date End Da te atorvastatin (LIPITOR) 40 mg tablet TAKE 1 TABLET(40 MG) BY MOUTH EVERY MORNING Reorder 10/04/2024 06/20/2025 documented as of this encounter Care Teams Operations Support Professionals Relationship Specialty Start Date End Date Graham Sorto MD PCP - General Family Medicine 10/10/21 Dillon Bowen MD Radiation Oncologist Radiation Oncology 09/27/22 Blue Castle MD [id number] [place] [address] Surgeon Vascular Surgery 08/31/24 documented as of this encounter
--- OUTSIDE RECORDS SUMMARY | 2025-08-19 12:40 | XMS_ITS | Encounter Summary ---
Author Organization [facility] Address [address] [place] [address] Care Team Providers Care Diving Fisher Name Role Phone Licha Bowen MD Primary Care Provider Encounter Details Date Type Department Care Team (Late st Contact Info) Description 01/21/2018 Telephone [facility] General Internal Medicine [address] [address] [place] Social History Tobacco Use Types Packs/Day Years Used Date Smoking Tobacco: Every Day Smokeless Tobacco: Never Alcohol Use Standard Drinks/Week Comments No 0 (1 standard drink = 0.6 oz pur e alcohol) Sex and Gender Information Value Date Recorded Sex Assigned at Not on file 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 Patient [facility] Friday for reported symptoms and patient request a dose of dilaudid since in past that resolved his symptoms. Patient reports that his previous provider Dr. Scott would prescribe him dilaudid tablet 2 to 4tablets to have on hand for these insistences.patient is requesting a CB from Dr. Bowen and a script for Dilaudid. CB# [phone]-[employer] documented in this encounter Plan of Treatment Not on file documented as of this encounter Visit Diagnoses Not on filedocumented in this encounter Care Teams Diving Fisher Relationship Specialty Start Date End Date Licha Bowen MD PCP - General 01/13/18 documented as of this encounter
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
[2025-08-19 13:25] VITALS: BP 179/117; PULSE 70; RESP 18; O2SAT 95
== END 2025-08-19 13:25 | disposition home or self-care (01) ==
PROVIDERS: Emergency Provider Emergency Medicine; PCP Family Medicine
DX: L08.9 Local infection of the skin and subcutaneous tissue, unspecified (principal); I10 Essential (primary) hypertension; E78.00 Pure hypercholesterolemia, unspecified; Z85.46 Personal history of malignant neoplasm of prostate; Z87.891 Personal history of nicotine dependence; Z79.899 Other long term (current) drug therapy
CPT/HCPCS: 99283; A9270